=== PATIENT | female | born 1985 | race Caucasian/White ===

== ENCOUNTER 2020-08-26 09:50 | Outpatient (REF) | payer OTHER, SELFPAY ==
[2020-08-27 11:21] LABS: BV Int Neg Control Negative (Negative); BV Int Pos Control Positive (Positive)
[2020-08-27 11:58] LABS: C. trachomatis RNA TMA NOT DETECTED (NOT DETECTED); N. gonorrhoeae RNA TMA NOT DETECTED (NOT DETECTED)
[2020-08-28 20:21] LABS: HPV mRNA E6/E7 rflx Not Detected (Not Detected)
== END 2020-08-26 09:51 | disposition home or self-care (01) ==
LOC: HO.LAB 09:50
PROVIDERS: PCP Internal Medicine; Visit Provider Obstetrics & Gynecology
DX: Z01.419 Encounter for gynecological examination (general) (routine) without abnormal findings (principal); Z11.51 Encounter for screening for human papillomavirus (HPV)
CPT/HCPCS: 36415; 87480; 87491; 87510; 87591; 87624; 87660; 88142

== ENCOUNTER 2021-08-30 09:52 | Outpatient (REF) | payer OTHER, SELFPAY ==
[2021-08-30 14:25] LABS: CT PCR NOT DETECTED (Not Detect.); NG PCR NOT DETECTED (Not Detect.)
== END 2021-08-30 09:53 | disposition home or self-care (01) ==
LOC: HO.LAB 09:52
PROVIDERS: PCP Internal Medicine; Visit Provider Advanced Practice Midwife
DX: Z01.419 Encounter for gynecological examination (general) (routine) without abnormal findings (principal); Z20.2 Contact with and (suspected) exposure to infections with a predominantly sexual mode of transmission
CPT/HCPCS: 87491; 87591

== ENCOUNTER 2021-10-29 12:47 | Outpatient (REF) | payer OTHER, SELFPAY ==
[2021-10-29 12:57] LABS: MANUAL DIFF FLAG NO
[2021-10-29 13:33] LABS: Basophils Percent Auto 0.4 % (0-2); Eosinophils Absolute Auto 0.2 X10*3/uL (0.0-0.4); Eosinophils Percent Auto 2.2 % (0-4); Hematocrit 46.6 % (37.0-47.0); Hemoglobin 15.6 g/dl (12.0-16.0); Imm Gran Abs Auto 0.02 X10*3/uL (0.00-0.03); Imm Gran Pct Auto 0.3 % (0.0-0.4); Lymphocytes Absolute Auto 1.2 X10*3/uL (1.2-4.9); Lymphocytes Percent Auto 18.1 % (20-40); Mean Corpuscular HGB Conc 33.5 g/dl (31.0-35.0); Mean Corpuscular Hemoglobin 29.9 pg (27.0-33.0); Mean Corpuscular Volume 89.4 fL (80.0-98.0); Monocytes Absolute Auto 0.5 X10*3/uL (0.1-1.2); Monocytes Percent Auto 7.9 % (2-11); Neutrophils Absolute Auto 4.8 x10*3/uL (2.0-8.3); Neutrophils Percent Auto 71.1 % (45-73); Platelet Count 270 X10*3/uL (160-400); Red Blood Count 5.21 X10*6/uL (4.20-5.50); Red Cell Distribution Width 12.4 % (11.0-16.0); White Blood Count 6.7 X10*3/uL (4.8-10.8)
[2021-10-29 14:03] LABS: Alanine Aminotransferase 7 U/L (0-31); Albumin Level 4.3 g/dL (3.5-5.0); Alkaline Phosphatase 57 U/L (39-117); Anion Gap 11 (12-20); Aspartate Amino Transferase 14 U/L (5-31); Bilirubin Total 0.8 mg/dL (0.0-1.0); Blood Urea Nitrogen 11 mg/dL (9-16); Calcium 9.7 mg/dL (8.4-10.2); Carbon Dioxide 24 mmol/L (22-29); Chloride 106 mmol/L (96-108); Estimated Glomerular Filt Rate > 60; Glucose Random 93 mg/dL (60-115); Potassium 4.4 mmol/L (3.3-5.1); Sodium 137 mmol/L (135-145); Total Protein 7.5 g/dL (6.5-8.0)
[2021-10-29 14:19] LABS: Erythrocyte Sedimentation Rate 3 MM/HR (0-20)
== END 2021-10-29 12:48 | disposition home or self-care (01) ==
LOC: HO.LAB 12:47
PROVIDERS: PCP Internal Medicine; Visit Provider Internal Medicine
DX: R51.9 Headache, unspecified (principal)
CPT/HCPCS: 36415; 80053; 85025; 85652

== ENCOUNTER 2021-12-17 07:51 | Outpatient (REF) | payer OTHER, SELFPAY ==
[2021-12-17 08:55] LABS: C Reactive Protein 0.15 mg/dL (< or = 0.50); Cholesterol 148 mg/dL; HDL Cholesterol 38 mg/dL; LDL Cholesterol Calculated 99 mg/dl; Magnesium 2.1 mg/dL (1.6-2.6); Triglycerides 58 mg/dL
[2021-12-17 09:05] LABS: Rheumatoid Factor < 15.0 IU/mL (<15.0); TSH reflex Free T4 1.28 uIU/mL (0.32-4.0); Vitamin D 25-OH Total 12.3 ng/mL (>30)
[2021-12-17 09:12] LABS: Appearance Urine HAZY; Color Urine YELLOW; Glucose Urine UA NEG (NEG); Leukocyte Esterase Urine NEG (NEG); Nitrite Urine NEG (NEG); Specific Gravity - Urine >= 1.030 (1.005-1.025); Urine Blood NEG (NEG); Urine Ketones NEG (NEG); Urine Protein NEG (NEG-TRACE)
[2021-12-21 15:16] LABS: Anti Nuclear Antibody Screen NEGATIVE (NEGATIVE)
== END 2021-12-17 07:52 | disposition home or self-care (01) ==
LOC: HO.LAB 07:51
PROVIDERS: PCP Internal Medicine; Visit Provider Internal Medicine
DX: Z00.00 Encounter for general adult medical examination without abnormal findings (principal); E55.9 Vitamin D deficiency, unspecified; R25.2 Cramp and spasm; I73.9 Peripheral vascular disease, unspecified
CPT/HCPCS: 36415; 80061; 81003; 82306; 83735; 84443; 86038; 86039; 86140; 86431

== ENCOUNTER 2022-04-15 10:35 | Outpatient (REF) | payer OTHER, SELFPAY ==
[2022-04-15 15:23] LABS: CT PCR NOT DETECTED (Not Detect.)
[2022-04-15 15:24] LABS: NG PCR NOT DETECTED (Not Detect.)
[2022-04-16 15:16] LABS: BV Int Neg Control Negative (Negative); BV Int Pos Control Positive (Positive)
== END 2022-04-15 10:36 | disposition home or self-care (01) ==
LOC: HO.LNP 10:35
PROVIDERS: Visit Provider Advanced Practice Midwife
DX: Z11.3 Encounter for screening for infections with a predominantly sexual mode of transmission (principal); L29.2 Pruritus vulvae; R82.90 Unspecified abnormal findings in urine; Z20.2 Contact with and (suspected) exposure to infections with a predominantly sexual mode of transmission
CPT/HCPCS: 87480; 87491; 87510; 87591; 87660; 99212

== ENCOUNTER 2022-04-27 09:42 | Outpatient (REF) | payer OTHER, SELFPAY ==
[2022-04-27 16:05] LABS: CT PCR NOT DETECTED (Not Detect.); NG PCR NOT DETECTED (Not Detect.)
[2022-04-28 13:25] LABS: BV Int Neg Control Negative (Negative); BV Int Pos Control Positive (Positive)
== END 2022-04-27 09:43 | disposition home or self-care (01) ==
LOC: HO.LNP 09:42
PROVIDERS: Visit Provider Advanced Practice Midwife
DX: Z11.3 Encounter for screening for infections with a predominantly sexual mode of transmission (principal); L29.2 Pruritus vulvae; N89.8 Other specified noninflammatory disorders of vagina
CPT/HCPCS: 87480; 87491; 87510; 87591; 87660; 99212

== ENCOUNTER 2022-06-03 02:17 | Emergency (ER) | payer OTHER, SELFPAY ==
--- NOTE | 2022-06-03 | ECG_ITS ---
Test Reason : HBP Blood Pressure : / mmHG Vent. Rate : 085 BPM Atrial Rate : 085 BPM P-R Int : 148 ms QRS Dur : 078 ms QT Int : 346 ms P-R-T Axes : 068 033 042 degrees QTc Int : 411 ms Normal sinus rhythm Normal ECG No previous ECGs available Referred By: Generic ED Physician Electronically Signed By:JILLIAN MORELAND MD
[2022-06-03 02:32] VITALS: BP 207/99; PULSE 100; RESP 16; TEMP 36.7; O2SAT 100; BMI 38.1
[2022-06-03 02:47] LABS: MANUAL DIFF FLAG NO
[2022-06-03 02:48] LABS: Basophils Percent Auto 0.4 % (0-2); Eosinophils Absolute Auto 0.4 X10*3/uL (0.0-0.4); Eosinophils Percent Auto 5.6 % (0-4); Hematocrit 46.4 % (37.0-47.0); Hemoglobin 15.7 g/dl (12.0-16.0); Lymphocytes Absolute Auto 1.8 X10*3/uL (1.2-4.9); Lymphocytes Percent Auto 26.8 % (20-40); Mean Corpuscular HGB Conc 33.8 g/dl (31.0-35.0); Mean Corpuscular Hemoglobin 29.7 pg (27.0-33.0); Mean Corpuscular Volume 87.7 fL (80.0-98.0); Mean Platelet Volume 9.9 fL (9.4-12.3); Monocytes Absolute Auto 0.7 X10*3/uL (0.1-1.2); Monocytes Percent Auto 9.8 % (2-11); Neutrophils Absolute Auto 3.9 x10*3/uL (2.0-8.3); Neutrophils Percent Auto 57.4 % (45-73); Platelet Count 250 X10*3/uL (160-400); Red Blood Count 5.29 X10*6/uL (4.20-5.50); Red Cell Distribution Width 12.3 % (11.0-16.0); White Blood Count 6.8 X10*3/uL (4.8-10.8)
[2022-06-03 03:05] LABS: Alanine Aminotransferase 7 U/L (0-31); Albumin Level 4.3 g/dL (3.5-5.0); Alkaline Phosphatase 48 U/L (39-117); Anion Gap 11 (12-20); Aspartate Amino Transferase 14 U/L (5-31); Bilirubin Total 0.4 mg/dL (0.0-1.0); Blood Urea Nitrogen 14 mg/dL (9-16); Calcium 9.7 mg/dL (8.4-10.2); Carbon Dioxide 23 mmol/L (22-29); Chloride 107 mmol/L (96-108); Creatinine Clr Calc Pharmacy 47.8; Estimated Glomerular Filt Rate > 60; Glucose Random 90 mg/dL (60-115); Potassium 4.1 mmol/L (3.3-5.1); Sodium 137 mmol/L (135-145); Total Protein 7.4 g/dL (6.5-8.0)
[2022-06-03 03:11] LABS: COVID-19 Test Negative (Negative)
[2022-06-03 03:41] LABS: Troponin-I High Sensitivity < 3.5 ng/L (<3.5-17.0)
[2022-06-03 05:26] VITALS: BP 156/74; PULSE 74; RESP 16; TEMP 37; O2SAT 100
--- NOTE | 2022-06-03 06:39 | ED_ITS ---
HPI - General Adult General Chief complaint: General Medical Stated complaint: High Blood Pressure Time Seen by Provider: 06/03/22 06:34 Source: patient Mode of arrival: ambulatory Limitations: no limitations History of Present Illness HPI narrative: 36-year-old female with a past medical history of achondroplasia and headaches presents to the emergency department this morning complaining of high blood pressure. Patient states she went to her dentist several days ago, who took her blood pressure and refused to do a dental cleaning, suggesting she follow-up with her primary care doctor. She states that she did call her primary care doctor who told her that they could recheck it later this week or next. She took her blood pressure at home last night and was elevated so came to the emergency department. Patient does not complain of any other symptoms except for some neck and shoulder tightness at times. She does not have any history of hypertension. Onset (ago): day(s) Radiation: non-radiation Severity: mild Quality: dull Pain Consistency: intermittent Relieving factors: none Exacerbating factors: none Related Data Previous Rx's Medication Instructions Recorded albuterol sulfate 90 mcg/actuation 2 puff inhalation Q6H PRN 07/14/21 aerosol inhaler shortness of breath or wheezing 30 days #8.5 grams wcuhehcppr-lmlcqpwsmilrj-hfiublqy 1 cap PO TID PRN headaches 30 days 07/14/21 50 mg-300 mg-40 mg capsule #90 caps (Fioricet) fluconazole 150 mg tablet 150 mg PO Q3D 2 doses #2 tabs 04/27/22 miconazole nitrate 2 % vaginal 1 appful vaginal BEDTIME 7 days 04/27/22 cream (Miconazole-7) #45 grams metronidazole 0.75 % (37.5 mg/5 1 appful vaginal BEDTIME 5 days 04/29/22 gram) vaginal gel #70 grams loratadine 10 mg tablet 10 mg PO DAILY PRN allergy 05/10/22 symptoms #90 tabs montelukast 10 mg tablet 10 mg PO DAILY #90 tabs 05/10/22 blood pressure monitor #1 ea 05/31/22 fluticasone 100 mcg-salmeterol 50 1 ea PO BID 30 days #60 ea 06/02/22 mcg/dose blistr powdr for inhalation (Wixela Inhub) Allergies Allergy/AdvReac Type Severity Reaction Status Date / Time peanut [PEANUT] Allergy Unknown UNKNOWN Verified 04/27/22 09:17 pineapple [PINEAPPLE] Allergy Unknown ITCHING Verified 04/27/22 09:17 shrimp [SHRIMP] Allergy Unknown ITCHING Verified 04/27/22 09:17 tree nut [TREE NUT] Allergy Unknown UNKNOWN Verified 04/27/22 09:17 Review of Systems Review of Systems: Yes all other systems are reviewed and are negative Constitutional: Constitutional: Denies chills, Denies fever(s), Reports headache(s) and Denies weakness Eyes: Eyes: Denies blurry vision, Denies change in vision and Denies diplopia ENT: Reports system reviewed and no additional complaints, except as docu mented and Reports headache(s) Cardiovascular: Cardiovascular: Denies chest pain, Denies rapid heart rate, Denies lightheadedness and Denies dyspnea Respiratory: Respiratory: Denies cough, Denies dyspnea and Denies wheezing Gastrointestinal: Gastrointestinal: Reports no additional gastrointestinal complaints Genitourinary: Genitourinary: Reports no additional female genitourinary c omplaints Musculoskeletal: Musculoskeletal: Reports no additional musculoskeletal complaints and Denies numbness Integumentary/Breasts: Skin/Breast: Reports system reviewed and no additional complaints, except as docu Neurologic: Denies Abnormal speech present, Denies confusion, Reports headache(s), Denies focal weakness, Denies numbness and Denies weakness Psychiatric: Psychiatric: Denies confusion Endocrine: Endocrine: Reports no additional endocrine complaints Allergic/Immunologic: Allergic/Immunologic: Denies wheezing PMFSH Past Medical History Attestation statement: The following information was validated with the patient. Medical History Achondroplasia Allergic rhinitis Asthma H/O abnormal cervical Papanicolaou smear Obesity (BMI 30-39.9) Surgical History History of appendectomy History of section History of tubal ligation Family History Family History Father Diabetes Hypertension Mother Arthritis Social History Social History Housing: House Alcohol intake: current Alcohol intake frequency: a few times a week Patient Tobacco Use Status: Never used Tobacco Smoked in Last 30 Days: No Second Hand Smoke Exposure: No Use of substances other than those prescribed or required for medical reasons: No Advance Directives: No Advance Directives Information Provided: Yes Patient : No Current occupational status: unemployed Cognitive needs: No Hearing needs: No Vision needs: No Physical Exam ED Vital Signs: Vital Signs - 24 hr 06/03/22 02:32 06/03/22 05:26 Temperature 98.1 F 98.6 F Pulse Rate 100 74 Respiratory Rate 16 16 Blood Pressure 207/99 H 156/74 H Pulse Oximetry 100 100 Oxygen Delivery Method Room Air Room Air BMI result Body Mass Index 38.1 Vital signs noted, blood pressure noted to be elevated initially at 207/99, then repeat at 156/74. Const General: cooperative, comfortable and no acute distress; No confusion Orientation/consciousness: oriented to person, patient oriented x3 and No confusion HENMT Head: Yes normal to inspection, Yes normocephalic and Yes atraumatic Ears: hearing grossly normal bilaterally and external ears normal General nose exam: Normal external nose present Face and sinus: Yes normal facial exam Eyes General: appearance normal, both eyes and all related structures Conjunctivae: conjunctivae normal Sclerae: sclerae normal Corneas: corneas normal Pupils: Equal, round and reactive pupils present EOM: EOMs intact bilaterally Direct Ophthalmoscopy: normal light reflex, no papilledema and fundi normal bilaterally Neck Neck: Yes normal visual inspection and Yes full ROM Chest Chest palpation & inspection: normal inspection of the chest Resp Effort & Inspection: normal respiratory effort Auscultation: clear to auscultation bilaterally, no crackles and no rales Cardio Palpation: normal PMI Rate: regular rate Rhythm: regular rhythm Heart sounds: S1 normal heart sound present, S2 normal heart sound present and no murmurs GI Inspection: Yes normal to inspection Palpation (GI): nontender Back/Spine/Pelvis Cervical Spine: normal cervical lordosis and cervical ROM normal Skin General skin exam: no rashes or lesions noted, no mottling and no pallor Neuro General: oriented to person, patient oriented x3 and No confusion Cranial nerves: Yes CN's II-XII intact bilaterally and Yes Equal, round and reactive pupils present Cognition (Neuro): normal cognition Speech: No Abnormal speech present Medical Decision Making MDM Narrative Medical decision making narrative: 36-year-old female with hypertensive urgency. Patient has elevated high blood pressure without any other additional symptoms or signs concerning for end-organ damage. laboratory studies were reviewed below, and are normal. EKG is normal as documented. The patient will be instructed on hypertensive urgency, and will be advised to follow-up with her primary care doctor for re-evaluation, and additional testing. Lab Data Lab results reviewed: Yes I reviewed the patient's lab results. Lab results narrative: CBC, chemistry troponin all normal Result diagrams: 06/03/22 02:43 06/03/22 02:43 Labs: Lab Results 06/03/22 06/03/22 06/03/22 Range/Units 02:43 02:43 02:43 WBC 6.8 (4.8-10.8) X10*3/uL RBC 5.29 (4.20-5.50) X10*6/uL Hgb 15.7 (12.0-16.0) g/dl Hct 46.4 (37.0-47.0) % MCV 87.7 (80.0-98.0) fL MCH 29.7 (27.0-33.0) pg MCHC 33.8 (31.0-35.0) g/dl RDW 12.3 (11.0-16.0) % Plt Count 250 (160-400) X10*3/uL MPV 9.9 (9.4-12.3) fL Immature Gran % (Auto) 0.0 (0.0-0.4) % Neut % (Auto) 57.4 (45-73) % Lymph % (Auto) 26.8 (20-40) % Rolette % (Auto) 9.8 (2-11) % Eos % (Auto) 5.6 H (0-4) % Baso % (Auto) 0.4 (0-2) % Lymph # (Auto) 1.8 (1.2-4.9) X10*3/uL Rolette # (Auto) 0.7 (0.1-1.2) X10*3/uL Eos # (Auto) 0.4 (0.0-0.4) X10*3/uL Baso # (Auto) 0.0 (0.0-0.2) X10*3/uL Abs Immat Gran (auto) 0.00 (0.00-0.03) X10*3/uL Absolute Neuts (auto) 3.9 (2.0-8.3) x10*3/uL Absolute Nucleated RBC 0.000 (0.0-0.012) X10*3/uL Nucleated RBC % (auto) 0.0 (0.0-0.2) /100WBC Sodium 137 (135-145) mmol/L Potassium 4.1 (3.3-5.1) mmol/L Chloride 107 (96-108) mmol/L Carbon Dioxide 23 (22-29) mmol/L Anion Gap 11 L (12-20) BUN 14 (9-16) mg/dL Creatinine 0.85 (0.5-1.4) mg/dL Estim Creat Clear Calc 47.8 Estimated GFR > 60 Random Glucose 90 (60-115) mg/dL Calcium 9.7 (8.4-10.2) mg/dL Total Bilirubin 0.4 (0.0-1.0) mg/dL AST 14 (5-31) U/L ALT 7 (0-31) U/L Alkaline Phosphatase 48 (39-117) U/L Troponin I High Sens (<3.5-17.0) ng/L Total Protein 7.4 (6.5-8.0) g/dL Albumin 4.3 (3.5-5.0) g/dL COVID-19 ([facility]) Negative (Negative) COVID-19 Clin Com See Note 06/03/22 Range/Units 02:43 WBC (4.8-10.8) X10*3/uL RBC (4.20-5.50) X10*6/uL Hgb (12.0-16.0) g/dl Hct (37.0-47.0) % MCV (80.0-98.0) fL MCH (27.0-33.0) pg MCHC (31.0-35.0) g/dl RDW (11.0-16.0) % Plt Count (160-400) X10*3/uL MPV (9.4-12.3) fL Immature Gran % (Auto) (0.0-0.4) % Neut % (Auto) (45-73) % Lymph % (Auto) (20-40) % Rolette % (Auto) (2-11) % Eos % (Auto) (0-4) % Baso % (Auto) (0-2) % Lymph # (Auto) (1.2-4.9) X10*3/uL Rolette # (Auto) (0.1-1.2) X10*3/uL Eos # (Auto) (0.0-0.4) X10*3/uL Baso # (Auto) (0.0-0.2) X10*3/uL Abs Immat Gran (auto) (0.00-0.03) X10*3/uL Absolute Neuts (auto) (2.0-8.3) x10*3/uL Absolute Nucleated RBC (0.0-0.012) X10*3/uL Nucleated RBC % (auto) (0.0-0.2) /100WBC Sodium (135-145) mmol/L Potassium (3.3-5.1) mmol/L Chloride (96-108) mmol/L Carbon Dioxide (22-29) mmol/L Anion Gap (12-20) BUN (9-16) mg/dL Creatinine (0.5-1.4) mg/dL Estim Creat Clear Calc Estimated GFR Random Glucose (60-115) mg/dL Calcium (8.4-10.2) mg/dL Total Bilirubin (0.0-1.0) mg/dL AST (5-31) U/L ALT (0-31) U/L Alkaline Phosphatase (39-117) U/L Troponin I High Sens < 3.5 (<3.5-17.0) ng/L Total Protein (6.5-8.0) g/dL Albumin (3.5-5.0) g/dL COVID-19 ([facility]) (Negative) COVID-19 Clin Com ECG Data Attestation: I personally reviewed and interpreted this ECG as follows: Interpretation: Normal sinus rhythm at 85, normal axis. Normal intervals. No ST T-wave changes. Overall normal EKG. Discharge Plan Discharge Clinical Impression: Hypertensive urgency, Elevated blood pressure reading without diagnosis of hypertension Patient Disposition: Home, Self-Care Instructions: Hypertensive Crisis (ED) Additional Instructions: call your doctor today to arrange follow-up appointments. Prescriptions: No Action metronidazole 0.75 % (37.5mg/5 gram) gel 1 appful vaginal BEDTIME 5 Days Qty: 70 0RF montelukast 10 mg tablet 10 mg PO DAILY Qty: 90 3RF loratadine 10 mg tablet 10 mg PO DAILY PRN (Reason: allergy symptoms) Qty: 90 3RF (DME) blood pressure monitor Kit See Rx Instructions .Route Qty: 1 0RF Rx Instructions: As directed fluticasone propion-salmeterol [Wixela Inhub] 100-50 mcg/dose blister with device 1 ea PO BID 30 Days Qty: 60 5RF albuterol sulfate 90 mcg/actuation HFA aerosol inhaler 2 puff inhalation Q6H PRN (Reason: shortness of breath or wheezing) 30 Days Qty: 8.5 5RF gpvbfdeoqh-tiqzvrcpxqeya-cbwd [Fioricet] 50-300-40 mg capsule 1 cap PO TID PRN (Reason: headaches) 30 Days Qty: 90 3RF miconazole nitrate [Miconazole-7] 2 % cream 1 appful vaginal BEDTIME 7 Days Qty: 45 1RF fluconazole 150 mg tablet 150 mg PO Q3D 0 Days Qty: 2 0RF Rx Instructions: may repeat second dose 72 hrs after first dose if symptoms persist Referrals: Kareem Newton MD [Primary Care Provider] - 1 day
[2022-06-03 07:23] VITALS: BP 166/101; PULSE 88; RESP 19; O2SAT 98
== END 2022-06-03 07:25 | disposition home or self-care (01) ==
PROVIDERS: Emergency Provider Emergency Medicine; PCP Internal Medicine
DX: I16.0 Hypertensive urgency (principal); R51.9 Headache, unspecified; I10 Essential (primary) hypertension; Z20.822 Contact with and (suspected) exposure to COVID-19; Z79.899 Other long term (current) drug therapy
CPT/HCPCS: 36415; 80053; 84484; 85025; 87635; 93005; 99283; 99284

== ENCOUNTER 2022-06-13 14:33 | Outpatient (REF) | payer OTHER, SELFPAY ==
[2022-06-14 06:03] LABS: CT PCR NOT DETECTED (Not Detect.); NG PCR NOT DETECTED (Not Detect.)
[2022-06-14 12:05] LABS: BV Int Neg Control Negative (Negative); BV Int Pos Control Positive (Positive)
== END 2022-06-13 14:34 | disposition home or self-care (01) ==
LOC: HO.LNP 14:33
PROVIDERS: Visit Provider Advanced Practice Midwife
DX: Z11.3 Encounter for screening for infections with a predominantly sexual mode of transmission (principal); N89.8 Other specified noninflammatory disorders of vagina
CPT/HCPCS: 87480; 87491; 87510; 87591; 87660; 99212

== ENCOUNTER 2022-09-19 08:31 | Outpatient (REF) | payer OTHER, SELFPAY ==
[2022-09-19 14:57] LABS: CT PCR NOT DETECTED (Not Detect.); NG PCR NOT DETECTED (Not Detect.)
== END 2022-09-19 08:32 | disposition home or self-care (01) ==
LOC: HO.LNP 08:31
PROVIDERS: PCP Internal Medicine; Visit Provider Advanced Practice Midwife
DX: Z20.2 Contact with and (suspected) exposure to infections with a predominantly sexual mode of transmission (principal)
CPT/HCPCS: 0353U

== ENCOUNTER 2022-11-09 13:14 | Outpatient (REF) | payer OTHER, SELFPAY ==
[2022-11-09 14:07] LABS: Appearance Urine Clear; Color Urine Yellow; Glucose Urine UA Negative (Negative); Leukocyte Esterase Urine Negative (Negative); Nitrite Urine Negative (Negative); Urine Blood Negative (Negative); Urine Ketones Negative (Negative); Urine Protein Negative (Neg-Trace)
[2022-11-09 15:26] LABS: Alanine Aminotransferase 10 U/L (0-31); Albumin Level 4.3 g/dL (3.5-5.0); Alkaline Phosphatase 56 U/L (39-117); Anion Gap 11 (12-20); Aspartate Amino Transferase 15 U/L (5-31); Bilirubin Total 0.6 mg/dL (0.0-1.0); Blood Urea Nitrogen 12 mg/dL (9-16); Calcium 9.5 mg/dL (8.4-10.2); Carbon Dioxide 27 mmol/L (22-29); Chloride 106 mmol/L (96-108); Estimated Glomerular Filt Rate > 60; Glucose Random 86 mg/dL (60-115); Magnesium 1.9 mg/dL (1.6-2.6); Potassium 4.5 mmol/L (3.3-5.1); Sodium 139 mmol/L (135-145); Total Protein 7.2 g/dL (6.5-8.0)
[2022-11-09 15:47] LABS: TSH reflex Free T4 1.16 uIU/mL (0.32-4.0); Vitamin B12 537 pg/mL (200-900); Vitamin D 25-OH Total 14.5 ng/mL (>30)
== END 2022-11-09 13:15 | disposition home or self-care (01) ==
LOC: HO.LAB 13:14
PROVIDERS: PCP Internal Medicine; Visit Provider Internal Medicine
DX: R03.0 Elevated blood-pressure reading, without diagnosis of hypertension (principal); E55.9 Vitamin D deficiency, unspecified; E83.42 Hypomagnesemia; E53.8 Deficiency of other specified B group vitamins; R30.0 Dysuria; E66.9 Obesity, unspecified
CPT/HCPCS: 36415; 80053; 81003; 82306; 82607; 82746; 83735; 84443

== ENCOUNTER 2023-05-16 09:36 | Outpatient (AMB) | payer OTHER, SELFPAY ==
[2023-05-16 09:40] VITALS: BP 120/78; PULSE 85; O2SAT 99; BMI 38.1
--- NOTE | 2023-05-16 09:40 | A.OFFPC_ITS ---
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: No Accompanied by: Self / Same As Patient Allergies peanut [PEANUT] Allergy (Unknown, Verified 05/16/23 10:12) UNKNOWN pineapple [PINEAPPLE] Allergy (Unknown, Verified 05/16/23 10:12) ITCHING shrimp [SHRIMP] Allergy (Unknown, Verified 05/16/23 10:12) ITCHING tree nut [TREE NUT] Allergy (Unknown, Verified 05/16/23 10:12) UNKNOWN Medication List - Last Reconciled 05/16/23 by Kareem Newton MD albuterol sulfate 90 mcg/actuation 2 puffs inhalation Q6H PRN 30 days blood pressure monitor As directed ibdtqjizcl-cncdlywzplnrl-fzdu 50-300-40 mg (Fioricet) 1 cap PO TID PRN 30 days cholecalciferol (vitamin D3) 50 mcg PO DAILY 90 days fluticasone propion-salmeterol 100-50 mcg/dose (Wixela Inhub) 1 ea PO BID 30 days hydroxyzine HCl 25 mg PO TID PRN 30 days loratadine 10 mg PO DAILY PRN montelukast 10 mg PO DAILY Tobacco use date assessed: 05/16/23 Dental Screening Dental Screen Date: 05/16/23 Did you have a dental visit in the last 12 months?: Yes Did you have a dental problem in the last 6 months where you did not have access to dental care?: No Was dental information given to patient?: Patient has dentist HPI 6 month f/u HPI Details Patient comes in today for her follow up visit States that her asthma is again back under control and that the prednisone taper that we called in for her last month worked very well Has noticed that her asthma symptoms have been flaring up a lot this fall; states that she was doing well in the summer with hardly any flare ups Relates (+) on and off low back pain and right hip pain for the past 1 month or so Notes that the pain also feels like it is going deep into her belly button (umbilical) area at times Recalls that her right leg is the shorter of her 2 legs and that she had to wear some orthopedic shoes when she was younger to correct the difference States that she has also been experiencing on and off joint pains in her hands/fingers often lately although she has not noticed any swelling in her fingers She denies any fever, headaches or dizziness Denies any chest pains No nausea/vomiting, no abdominal pain No change in bowel habits noted PFSH Medical History Vitamin D deficiency Achondroplasia H/O abnormal cervical Papanicolaou smear Obesity (BMI 30-39.9) Asthma Allergic rhinitis Surgical History History of appendectomy History of section History of tubal ligation Family History Father Diabetes Hypertension Mother Arthritis Social History Housing: House Alcohol intake: current Alcohol intake frequency: a few times a week Patient Tobacco Use Status: Never used Tobacco e-Cigarette/Vaping Use: Never Used Second Hand Smoke Exposure: No Current occupational status: unemployed Cognitive needs: No Hearing needs: No Vision needs: No Female Reproductive History Menstrual Age of Menarche: 12 Questionnaire PHQ-9 Over the last 2 weeks, how often have you been bothered by any of the following problems? 1. Little interest or pleasure in doing things: not at all 2. Feeling down, depressed, or hopeless: not at all 3. Trouble falling or staying asleep, or sleeping too much: not at all 4. Feeling tired or having little energy: not at all 5. Poor appetite or overeating: not at all 6. Feeling bad about yourself - or that you are a failure or have let yourself or your family down: not at all 7. Trouble concentrating on things, such as reading the newspaper or watching television: not at all 8. Moving or speaking so slowly that other people could have noticed. Or the opposite - being so fidgety or restless that you have been moving around a lot more than usual: not at all 9. Thoughts that you would be better off or of hurting yourself in some way: not at all Total score: 0 Depression Screening Interpretation: Negative Depression Screening Done: Yes [id number] - PHQ-9 Billing: Yes Source: Developed by Drs. Luis Miguel Santana, Edda Maurer, Tor Tan and colleagues, with an educational kelsey from [employer]. Thrive Questionnaire Date Thrive assessed: 05/16/23 I am a: Patient What is your living situation today?: I have a steady place to live Within the past 12 months, did the food you bought not last and you didn't have the money to get more?: Never true Within the past 12 months, did you worry whether your food would run out before you got money to buy more?: Never true Do you have trouble paying for medicines?: No Do you have trouble getting transportation to medical appointments?: No Do you have trouble paying your heating and electricity bill?: No Do you have trouble taking care of your child, family member or friend?: No Do you have trouble with day-to-day activities such as bathing, preparing meals, shopping, managing finances, etc.?: No Are you currently unemployed and looking for a job?: No Are you interested in more education?: No Please select the resources that you would like help with: None Currently or been in a relationship where the following occur: no concerns reported AUDIT C Alcohol Use Questionnaire (AUDIT-C) 1. How often do you have a drink containing alcohol?: Monthly or less 2. How many drinks containing alcohol do you have on a typical day when you are drinking?: 1 or 2 3. How often do you have six or more drinks on one occasion?: Never Total Score: 1 Score Reviewed/Action Taken: Yes GROVER-7 AMB Questionnaire GROVER-7 Date GROVER - 7 assessed: 05/16/23 Feeling nervous, anxious, or on edge: 0 = Not at all Not being able to stop or control worryin = Not at all Worrying too much about different things: 0 = Not at all Trouble relaxin = Not at all Being so restless that it is hard to sit still: 0 = Not at all Becoming easily annoyed or irritable: 0 = Not at all Feeling afraid as if something awful might happen: 0 = Not at all Total GROVER-7 score (0-4 normal; 5-9 mild; 10-14 moderate; 15-21 severe): 0 Source: Developed by Drs. Luis Miguel Santana, Edda Maurer, Tor Tan and colleagues, with an educational kelsey from [employer]. Review of Systems Const Denies chills, Denies fatigue, Denies fever(s) and Denies headache(s) ENT Denies dysphagia, Denies dizziness, Denies otalgia, Denies headache(s), Denies neck pain, Denies odynophagia and Denies sore throat Card Denies chest pain, Denies palpitations and Denies dyspnea Resp Denies cough and Denies dyspnea GI Denies abdominal pain, Denies constipation, Denies dysphagia, Denies heartburn, Denies diarrhea, Denies nausea, Denies odynophagia and Denies vomiting Denies difficulty voiding, Denies nocturia and Denies dysuria Musc Reports back pain (on and off over the lower back ), Reports arthralgias (on and off in both hands/fingers lately; over the right hip area) and Denies neck pain Skin/Breast Denies rash Neuro Denies dizziness and Denies headache(s) Endo Denies fatigue and Denies palpitations Physical exam (Primary Care) Vital Signs: Last Vital Signs Pulse 85 05/16/23 09:40 BP 120/78 05/16/23 09:40 Pulse Ox 99 05/16/23 09:40 Oxygen Delivery Method Room Air 05/16/23 09:40 BMI result Body Mass Index 38.1 Tobacco/Smoking Status: Tobacco use Status Tobacco use date assessed 05/16/23 05/16/23 09:44 Patient Tobacco Use Status Never used Tobacco 05/16/23 09:44 e-Cigarette/Vaping Use Never Used 05/16/23 09:44 PHQ-9: PHQ-9 Score PHQ-9: Total score 0 05/16/23 09:44 Depression Screening Interpretation: Negative Thrive Assessment: Date of Thrive Assessment Date Thrive assessed 05/16/23 05/16/23 09:44 Currently or been in a relationship where the following occur: no concerns reported Const General: no acute distress and alert HENMT Ears: TM's normal bilaterally and EAC's normal Throat: Yes posterior oropharynx normal and Yes tonsils normal (no TP congestion) Neck Neck: Yes no lymphadenopathy and Yes supple Resp Auscultation: clear to auscultation bilaterally, no rales and no wheezes Cardio Rate: regular rate Rhythm: regular rhythm Heart sounds: no murmurs GI Palpation (GI): Soft to palpation, nontender and No hepatosplenomegaly present Back/Spine/Pelvis Thoracic/Lumbar Spine: paraspinal muscle tenderness bilaterally in the mid lumbar and in the lower lumbar and lumbar spinal tenderness (mild) Skin General skin exam: no rashes or lesions noted Extrem General: Yes no clubbing, cyanosis or edema Right upper extremity: Extremity exam: right hand Details: normal to inspection Left upper extremity: hand Details: normal to inspection Right lower extremity: hip/thigh Details: normal to inspection and normal ROM Assessment and Plan Assessment & Plan (1) Asthma: Code(s): J45.909 - Unspecified asthma, uncomplicated Qualifiers: Asthma severity: moderate Asthma persistence: persistent Asthma complication type: uncomplicated Qualified Code(s): J45.40 - Moderate persistent asthma, uncomplicated Plan: States that aside from her recent flare up last month, her asthma has been stable / controlled overall although she's had to use her Albuterol inhaler more often this fall Continue Wixela Inhub 100-50 mcg 1 inhalation BID, Montelukast 10 mg QD and Albuterol HFA 1 to 2 inhalations Q 6 hours as needed (2) Allergic rhinitis: Code(s): J30.9 - Allergic rhinitis, unspecified Qualifiers: Allergic rhinitis trigger: unspecified Allergic rhinitis seasonality: unspecified Qualified Code(s): J30.9 - Allergic rhinitis, unspecified Plan: Continue Loratadine 10 mg QD PRN (3) Vitamin D deficiency: Code(s): E55.9 - Vitamin D deficiency, unspecified Plan: Continue Vitamin D3 2000 units QD (4) Recurrent headache: Code(s): R51.9 - Headache, unspecified Plan: Most likely migraine headaches; patient states that her headaches have been controlled lately Her previous tinging sensation in her head/ears may be a migraine variant or could be related to anxiety Reinforced avoidance of migraine triggers Continue Fioircet 1 tablet 3 to 4 times a day as needed If headaches get worse or start occurring more frequently, may need to consider prophylactic Rx or referral to neurology (5) Achondroplasia: Code(s): Q77.4 - Achondroplasia Plan: Has no associated neurologic symptoms No further interventions are indicated (6) Low back pain: Code(s): M54.50 - Low back pain, unspecified Qualifiers: Chronicity: unspecified Back pain laterality: bilateral Sciatica presence: without sciatica Qualified Code(s): M54.50 - Low back pain, unspecified Plan: Likely musculoskeletal in origin Will send patient for lumbar spine x-rays for further evaluation X-rays done back in 2015 revealed only (+) mild scoliosis with no acute abnormality (7) Hip pain: Code(s): M25.559 - Pain in unspecified hip Qualifiers: Laterality: right Qualified Code(s): M25.551 - Pain in right hip Plan: Will send patient for x-rays of the hips for further evaluation (8) Arthralgia: Code(s): M25.50 - Pain in unspecified joint Qualifiers: Joint pain location: other joint Qualified Code(s): M25.59 - Pain in other specified joint Plan: Will send her for some screening labs for further evaluation and to r/o any inflammatory joint disease as potential etiology of her recent recurrent joint pains (9) Obesity (BMI 30-39.9): Code(s): E66.9 - Obesity, unspecified Plan: Reinforced diet/exercise as tolerated/lose weight Plan To return in 6 months for her next annual physical examination Orders: Orders XR hip BI w PEL1V Today M25.551 - Pain in right hip, M25.552 - Pain in left hip Comprehensive Met. Panel Today M25.50 - Pain in unspecified joint, M25.559 - Pain in unspecified hip, M54.50 - Low back pain, unspecified Erythrocyte Sedimentation Rate Today M25.50 - Pain in unspecified joint, M25.559 - Pain in unspecified hip, M54.50 - Low back pain, unspecified Uric Acid Today M25.50 - Pain in unspecified joint, M25.559 - Pain in unspecified hip, M54.50 - Low back pain, unspecified Rheumatoid Factor Today M25.50 - Pain in unspecified joint, M25.559 - Pain in unspecified hip, M54.50 - Low back pain, unspecified TAYE Reflex Titer and Pattern Today M25.50 - Pain in unspecified joint, M25.559 - Pain in unspecified hip, M54.50 - Low back pain, unspecified XR lumbar spine 2-3V Today M54.50 - Low back pain, unspecified Complete Blood Count Auto Diff Today M25.50 - Pain in unspecified joint, M25.559 - Pain in unspecified hip, M54.50 - Low back pain, unspecified C Reactive Protein Today M25.50 - Pain in unspecified joint, M25.559 - Pain in unspecified hip, M54.50 - Low back pain, unspecified Coding Level of Care Code Est Pt Level 4 (85265) Diagnoses Moderate persistent asthma without complication J45.40 Asthma severity: moderate Asthma persistence: persistent Asthma complication type: uncomplicated Allergic rhinitis, unspecified seasonality, unspecified trigger J30.9 Allergic rhinitis trigger: unspecified Allergic rhinitis seasonality: unspecified Vitamin D deficiency E55.9 Recurrent headache R51.9 Achondroplasia Q77.4 Bilateral low back pain without sciatica, unspecified chronicity M54.50 Chronicity: unspecified Back pain laterality: bilateral Sciatica presence: without sciatica Pain of right hip M25.551 Laterality: right Pain in other joint M25.59 Joint pain location: other joint Obesity (BMI 30-39.9) E66.9
== END 2023-05-16 10:24 | disposition home or self-care (01) ==
PROVIDERS: Visit Provider Internal Medicine
DX: J45.40 Moderate persistent asthma, uncomplicated (principal); J30.9 Allergic rhinitis, unspecified; E66.9 Obesity, unspecified; Z68.38 Body mass index [BMI] 38.0-38.9, adult; E55.9 Vitamin D deficiency, unspecified; R51.9 Headache, unspecified; Q77.4 Achondroplasia; M54.50 Low back pain, unspecified; M25.551 Pain in right hip; M25.59 Pain in other specified joint
CPT/HCPCS: 99214

== ENCOUNTER 2023-05-17 09:00 | Outpatient (REF) | payer OTHER, SELFPAY ==
--- NOTE | ~2023-05-17 | XR_ITS ---
EXAMINATION: XR LUMBOSACRAL SPINE CLINICAL INFORMATION: Lower back pain. COMPARISON: None available. TECHNIQUE: AP and lateral views of the lumbar spine and lateral view of the lumbosacral junction. FINDINGS: Vertebral body heights are normal. At L5-S1, there is a 3 mm retrolisthesis. There is a mild to moderate lumbar dextroscoliosis. The remaining lumbar disc spaces are well-maintained. No acute fracture or spondylolisthesis is seen. There is multi-level mild thoracolumbar spondylosis. The posterior elements are intact. The paravertebral soft tissues are unremarkable. XR/XR lumbar spine 2-3V IMPRESSION: 1. There is mild degenerative disc disease at L5-S1. 2. There is multi-level mild thoracolumbar spondylosis. 3. There is a mild to moderate lumbar dextroscoliosis.
--- NOTE | ~2023-05-17 | XR_ITS ---
EXAMINATION: XR BILATERAL HIPS WITH AP PELVIS CLINICAL INFORMATION: Right hip pain. COMPARISON: None available. TECHNIQUE: AP view of the pelvis and frog-leg lateral views of each hip were obtained. FINDINGS: No fracture. Hip joint spaces are maintained. Alignment is anatomic. Sacroiliac joints and pubic symphysis are normal. No abnormal soft tissue calcifications. XR/XR hip BI w PEL1V IMPRESSION: Normal pelvis and hips.
[2023-05-17 09:18] LABS: MANUAL DIFF FLAG NO
[2023-05-17 09:43] LABS: Basophils Percent Auto 0.7 % (0-2); Eosinophils Absolute Auto 0.5 X10*3/uL (0.0-0.4); Eosinophils Percent Auto 8.6 % (0-4); Hematocrit 47.1 % (37.0-47.0); Hemoglobin 15.6 g/dl (12.0-16.0); Imm Gran Abs Auto 0.01 X10*3/uL (0.00-0.03); Imm Gran Pct Auto 0.2 % (0.0-0.4); Lymphocytes Absolute Auto 1.5 X10*3/uL (1.2-4.9); Lymphocytes Percent Auto 26.8 % (20-40); Mean Corpuscular HGB Conc 33.1 g/dl (31.0-35.0); Mean Corpuscular Hemoglobin 30.2 pg (27.0-33.0); Mean Corpuscular Volume 91.1 fL (80.0-98.0); Mean Platelet Volume 10.1 fL (9.4-12.3); Monocytes Absolute Auto 0.5 X10*3/uL (0.1-1.2); Monocytes Percent Auto 9.7 % (2-11); Neutrophils Absolute Auto 2.9 x10*3/uL (2.0-8.3); Platelet Count 261 X10*3/uL (160-400); Red Blood Count 5.17 X10*6/uL (4.20-5.50); Red Cell Distribution Width 12.4 % (11.0-16.0); White Blood Count 5.5 X10*3/uL (4.8-10.8)
[2023-05-17 10:15] LABS: Alanine Aminotransferase 11 U/L (0-31); Albumin Level 4.3 g/dL (3.5-5.0); Alkaline Phosphatase 52 U/L (39-117); Anion Gap 13 (12-20); Aspartate Amino Transferase 15 U/L (5-31); Bilirubin Total 0.5 mg/dL (0.0-1.0); Blood Urea Nitrogen 9 mg/dL (9-16); C Reactive Protein 0.12 mg/dL (< or = 0.50); Calcium 9.5 mg/dL (8.4-10.2); Carbon Dioxide 24 mmol/L (22-29); Chloride 106 mmol/L (96-108); Estimated Glomerular Filt Rate > 60; Glucose Random 62 mg/dL (60-115); Potassium 3.8 mmol/L (3.3-5.1); Sodium 139 mmol/L (135-145); Total Protein 7.4 g/dL (6.5-8.0); Uric Acid 4.6 mg/dL (2.4-5.7)
[2023-05-17 10:19] LABS: Erythrocyte Sedimentation Rate 2 MM/HR (0-20)
[2023-05-17 10:33] LABS: Rheumatoid Factor < 13.0 IU/mL (<15.0)
[2023-05-22 14:43] LABS: Anti Nuclear Antibody Pattern Nuclear, Homogeneous; Anti Nuclear Antibody Screen POSITIVE (NEGATIVE); Anti Nuclear Antibody Titer 1:40 titer
== END 2023-05-17 09:01 | disposition home or self-care (01) ==
LOC: HO.LAB 09:00
PROVIDERS: PCP Internal Medicine; Visit Provider Internal Medicine
DX: M25.551 Pain in right hip (principal); M25.552 Pain in left hip; M54.50 Low back pain, unspecified; M25.50 Pain in unspecified joint
CPT/HCPCS: 36415; 72100; 73521; 80053; 84550; 85025; 85652; 86038; 86039; 86140; 86431

== ENCOUNTER 2023-09-21 08:56 | Outpatient (REF) | payer OTHER, SELFPAY ==
[2023-09-21 15:34] LABS: CT PCR NOT DETECTED (Not Detect.); NG PCR NOT DETECTED (Not Detect.)
[2023-09-22 16:13] LABS: BV Int Neg Control Negative (Negative); BV Int Pos Control Positive (Positive)
== END 2023-09-21 08:57 | disposition home or self-care (01) ==
LOC: HO.LNP 08:56
PROVIDERS: Visit Provider Advanced Practice Midwife
DX: Z01.419 Encounter for gynecological examination (general) (routine) without abnormal findings (principal); Z20.2 Contact with and (suspected) exposure to infections with a predominantly sexual mode of transmission
CPT/HCPCS: 0353U; 87480; 87510; 87660

== ENCOUNTER 2023-09-21 08:56 | Outpatient (AMB) | payer OTHER, SELFPAY ==
--- NOTE | 2023-09-21 09:02 | MHC.OFFVIS ---
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 Doing well with no concerns. She tries to eat healthy and stays active with exercise. Regular monthly menses. Currently is sexually active. She denies vaginal itching and irritation. STI screening offered; she accepts. Declines bloodwork. Denies family history of breast, ovarian or colon cancer. Last pap smear 2020, negative. REPLACED BY [facility] Medical History Vitamin D deficiency Achondroplasia H/O abnormal cervical Papanicolaou smear Obesity (BMI 30-39.9) Asthma Allergic rhinitis Surgical History History of appendectomy History of section History of tubal ligation Family History Father Diabetes Hypertension Mother Arthritis Social History Housing: House Alcohol intake: current Alcohol intake frequency: a few times a week Patient Tobacco Use Status: Never used Tobacco e-Cigarette/Vaping Use: Never Used Second Hand Smoke Exposure: No Current occupational status: unemployed Cognitive needs: No Hearing needs: No Vision needs: No Female Reproductive History Menstrual Age of Menarche: 12 Date of last menstrual period: 09/14/23 control method: permanent sterilization Permanent Sterilization: BTL Total pregnancies: 3 Full term: 1 Premature: 2 Number of Living Children: 3 Ab spontaneous: 1 Multiple births: 1 Date of last pap smear: 08/26/20 (neg pap and hpv) History of abnormal pap smear: Yes (01/03 cin1 04/06 ascus +hpv 11/05 lgsil 12/06 ascus) Review of Systems Const All systems reviewed & are unremarkable except as noted in HPI and below Reports as per HPI Eyes Reports no additional complaints ENT Reports no additional complaints Card Reports no additional complaints Resp Reports no additional complaints GI Reports as per HPI and Reports no additional complaints Reports as per HPI Musc Reports no additional complaints Skin/Breast Reports as per HPI Neuro Reports no additional complaints Psych Reports no additional complaints Endo Reports no additional complaints Ned/Lymph Reports no additional complaints Aller/Immun Reports no additional complaints Physical Exam Vital Signs: Last Vital Signs BP 100/66 09/21/23 09:07 BMI result Body Mass Index 38.1 Const General: cooperative, healthy appearing, no acute distress, well developed and alert Orientation/consciousness: patient oriented x3 HEENT Head: Yes normal to inspection Eyes General: appearance normal, both eyes and all related structures Neck Neck: Yes normal visual inspection Thyroid: Thyroid normal Chest Chest palpation & inspection: normal inspection of the chest and other (no puckering, dimpling, peau de orange, retraction, discharge, masses) Breast/axilla inspection: normal inspection of the breasts Breast/axilla palpation: normal palpation of the breasts Resp Effort & Inspection: normal respiratory effort GI Inspection: Yes normal to inspection Palpation (GI): Soft to palpation Rectal Exam - Female: deferred General: Yes bladder normal to palpation External Female Exam: normal external appearance and normal appearance of the urethra Speculum Exam - Vagina: normal appearance of the vagina, normal palpation and normal vaginal discharge Speculum Exam - Cervix: normal appearance of the cervix and normal palpation Bimanual exam- vagina & uterus: normal bimanual exam, normal palpation, uterine size normal, bladder normal to palpation, normal palpation and non-tender Bimanual Exam- Adnexa, other: no masses Skin General skin exam: no rashes or lesions noted Rashes: no rashes Neuro General: patient oriented x3 Cognition (Neuro): normal cognition Extrem General: Yes normal to inspection Psych Attitude: cooperative Thought process: Normal thought process present Assessment & Plan Assessment & Plan (1) Encounter for well woman exam with routine gynecological exam: Code(s): Z01.419 - Encounter for gynecological examination (general) (routine) without abnormal findings Plan Discussed: Current recommendations for pap smears per ASCCP guidelines. Breast awareness and periodic breast exams. Maintain a healthy lifestyle including a well balanced diet and routine exercise. Patient verbalizes understanding and agrees to the plan of care. She was given opportunity to ask questions and all questions were answered to the best of my ability. RTO in one year for annual logistics assistant examination. This note is constructed using voice recognition software. While every effort has been made to ensure accuracy, chief operating engineer errors may have been included. Coding Level of Care Code Est Pt Prev Care 18-39y(32989) Diagnoses Encounter for well woman exam with routine gynecological exam Z01.419
[2023-09-21 09:07] VITALS: BP 100/66; BMI 38.1
== END 2023-09-21 09:33 | disposition home or self-care (01) ==
PROVIDERS: PCP Internal Medicine; Visit Provider Advanced Practice Midwife
DX: Z01.419 Encounter for gynecological examination (general) (routine) without abnormal findings (principal)
CPT/HCPCS: 99395

== ENCOUNTER 2023-09-21 09:30 | Outpatient (REF) | payer OTHER, SELFPAY | END 2023-09-21 09:31 | disposition home or self-care (01) | LOC: HO.LAB 09:30 | PROVIDERS: Visit Provider Advanced Practice Midwife | DX: Z13.89 Encounter for screening for other disorder (principal) ==

== ENCOUNTER 2023-11-20 09:18 | Outpatient (AMB) | payer OTHER, SELFPAY ==
--- NOTE | 2023-11-20 09:29 | MHC.PC.OV ---
Vital Signs 11/20/23 09:31 Height 4 ft Weight 123 lb 2 oz BMI 37.6 BP 110/62 Blood Pressure Location Lt brachial Position Sitting Pulse 67 Pulse Source Pulse Oximeter Pulse Oximetry (%) 99 Oxygen Delivery Method Room Air Intake Visit Reasons: pe Intake Note: Patient is here today for a physical. Business Resiliency Manager Required: No Stereo Operator: Not Required per policy Accompanied by: Self / Same As Patient Allergies peanut [PEANUT] Allergy (Unknown, Verified 11/20/23 09:53) UNKNOWN pineapple [PINEAPPLE] Allergy (Unknown, Verified 11/20/23 09:53) ITCHING shrimp [SHRIMP] Allergy (Unknown, Verified 11/20/23 09:53) ITCHING tree nut [TREE NUT] Allergy (Unknown, Verified 11/20/23 09:53) UNKNOWN Medication List - Last Reconciled 11/20/23 by Kareem Newton MD albuterol sulfate 90 mcg/actuation 2 puffs inhalation Q6H PRN 30 days blood pressure monitor As directed [id number]-[id number]-gmps 50-300-40 mg (Fioricet) 1 cap PO TID PRN 30 days cholecalciferol (vitamin D3) 50 mcg PO DAILY 90 days fluticasone propion-salmeterol 100-50 mcg/dose (Wixela Inhub) 1 ea PO BID 30 days levocetirizine (Xyzal) 5 mg PO QPM PRN montelukast 10 mg PO DAILY Tobacco use date assessed: 11/20/23 Dental Screening Dental Screen Date: 11/20/23 Did you have a dental visit in the last 12 months?: Yes Did you have a dental problem in the last 6 months where you did not have access to dental care?: No Was dental information given to patient?: Patient has dentist HPI pe HPI Details Patient comes in today for her annual physical examination States that she feels okay except for a couple of issues lately States that she continues to experience increased pain over her lower back often and would like to know how her x-rays done last time came out Also relates that her toes are almost always cold now (especially at night) even when the weather is turning warmer Notes that her toes get so cold at times that they literally turn white in color Reports (+) recurrent leg pain / cramping at times and she is concerned that she may be having problems with circulation in her lower extremities She denies any headaches or dizziness Denies any chest pains, no SOB No nausea/vomiting, no abdominal pain No change in bowel habits noted Denies any acute urinary symptoms She was seen by gynecology for her annual gynecologic exam back on 09/21/2023 and has her next appt with them scheduled in September 2024 [facility] Medical History (Updated 11/20/23 @ 10:26 by Kareem Newton MD) Vitamin D deficiency Achondroplasia H/O abnormal cervical Papanicolaou smear Obesity (BMI 30-39.9) Asthma Allergic rhinitis Surgical History (Updated 11/20/23 @ 10:16 by Kareem Newton MD) History of appendectomy History of section History of tubal ligation Family History Father Diabetes Hypertension Mother Arthritis Social History Housing: House Alcohol intake: current Alcohol intake frequency: holidays/special occasions only Patient Tobacco Use Status: Never used Tobacco e-Cigarette/Vaping Use: Never Used Second Hand Smoke Exposure: No service: No Current occupational status: unemployed Cognitive needs: No Hearing needs: No Vision needs: No Female Reproductive History Menstrual Age of Menarche: 12 Questionnaire PHQ-9 Over the last 2 weeks, how often have you been bothered by any of the following problems? 1. Little interest or pleasure in doing things: not at all 2. Feeling down, depressed, or hopeless: not at all 3. Trouble falling or staying asleep, or sleeping too much: not at all 4. Feeling tired or having little energy: not at all 5. Poor appetite or overeating: not at all 6. Feeling bad about yourself - or that you are a failure or have let yourself or your family down: not at all 7. Trouble concentrating on things, such as reading the newspaper or watching television: not at all 8. Moving or speaking so slowly that other people could have noticed. Or the opposite - being so fidgety or restless that you have been moving around a lot more than usual: not at all 9. Thoughts that you would be better off or of hurting yourself in some way: not at all Total score: 0 Depression Screening Interpretation: Negative Depression Screening Done: Yes 31005 - PHQ-9 Billing: Yes Source: Developed by Drs. Luis Miguel Santana, Edda aMurer, Tor Tan and colleagues, with an educational kelsey from [employer]. Thrive Questionnaire Date Thrive assessed: 11/20/23 I am a: Patient What is your living situation today?: I have a steady place to live Within the past 12 months, did the food you bought not last and you didn't have the money to get more?: Never true Within the past 12 months, did you worry whether your food would run out before you got money to buy more?: Never true Do you have trouble paying for medicines?: No Do you have trouble getting transportation to medical appointments?: No Do you have trouble paying your heating and electricity bill?: No Do you have trouble taking care of your child, family member or friend?: No Do you have trouble with day-to-day activities such as bathing, preparing meals, shopping, managing finances, etc.?: No Are you currently unemployed and looking for a job?: No Are you interested in more education?: No Currently or been in a relationship where the following occur: no concerns reported THRIVE Score: 0 AUDIT C Alcohol Use Questionnaire (AUDIT-C) 1. How often do you have a drink containing alcohol?: Monthly or less 2. How many drinks containing alcohol do you have on a typical day when you are drinking?: 1 or 2 3. How often do you have six or more drinks on one occasion?: Never Total Score: 1 Score Reviewed/Action Taken: Yes GROVER-7 AMB Questionnaire GROVER-7 Date GROVER - 7 assessed: 11/20/23 Feeling nervous, anxious, or on edge: 0 = Not at all Not being able to stop or control worryin = Not at all Worrying too much about different things: 0 = Not at all Trouble relaxin = Not at all Being so restless that it is hard to sit still: 0 = Not at all Becoming easily annoyed or irritable: 0 = Not at all Feeling afraid as if something awful might happen: 0 = Not at all Total GROVER-7 score (0-4 normal; 5-9 mild; 10-14 moderate; 15-21 severe): 0 Source: Developed by Drs. Luis Miguel Santana, Edda Maurer, Tor Tan and colleagues, with an educational kelsey from [employer]. Review of Systems Const Denies chills, Denies fatigue, Denies fever(s), Denies headache(s) and Denies malaise Eyes Denies blurry vision, Denies change in vision, Denies irritation and Denies itchy eyes ENT Denies dysphagia, Denies dizziness, Denies otalgia, Denies headache(s), Denies nasal congestion, Denies neck pain, Denies odynophagia, Denies sinus pain and Denies sore throat Card Denies chest pain, Denies rapid heart rate, Denies irregular heart rhythm, Denies palpitations and Denies dyspnea Resp Denies chest congestion, Denies cough, Denies dyspnea and Denies wheezing GI Denies abdominal pain, Denies bloating, Denies constipation, Denies dysphagia, Denies heartburn, Denies diarrhea, Denies nausea, Denies odynophagia and Denies vomiting Denies hematuria, Denies urinary frequency, Denies dysuria, Denies urinary incontinence and Denies urinary urgency Musc Reports back pain (over the lower back - increasing), Denies arthralgias, Denies joint swelling, Denies muscle weakness and Denies neck pain Skin/Breast Denies breast pain, Denies breast mass, Reports change in pigmentation (toes turn white and feels cold often - worse at night), Denies lesions, Denies rash and Denies unusual bruising Neuro Denies dizziness, Denies headache(s) and Denies paresthesias Psych Denies anxiety and Denies depression Endo Denies fatigue and Denies palpitations Ned/Lymph Denies easy bruising Aller/Immun Denies itchy eyes and Denies wheezing Physical exam (Primary Care) Vital Signs: Last Vital Signs Pulse 67 11/20/23 09:31 BP 110/62 11/20/23 09:31 Pulse Ox 99 11/20/23 09:31 Oxygen Delivery Method Room Air 11/20/23 09:31 BMI result Body Mass Index 37.6 Tobacco/Smoking Status: Tobacco use Status Tobacco use date assessed 11/20/23 11/20/23 09:35 Patient Tobacco Use Status Never used Tobacco 04/29/24 09:35 e-Cigarette/Vaping Use Never Used 11/20/23 09:35 PHQ-9: PHQ-9 Score PHQ-9: Total score 0 11/20/23 09:55 Depression Screening Interpretation: Negative Thrive Assessment: Date of Thrive Assessment Date Thrive assessed 11/20/23 11/20/23 09:35 Currently or been in a relationship where the following occur: no concerns reported Const Other: short stature General: no acute distress, alert and awake Orientation/consciousness: patient oriented x3 HENMT Head: Yes normocephalic and Yes atraumatic Ears: external ears normal, TM's normal bilaterally and EAC's normal General nose exam: No nasal discharge present Face and sinus: Yes normal facial exam and Yes sinuses nontender Teeth and gingiva: dentition normal Throat: Yes posterior oropharynx normal and Yes tonsils normal (no TP congestion) Eyes Eyelids: Yes eyelids normal Conjunctivae: conjunctivae normal Pupils: Equal, round and reactive pupils present EOM: EOMs intact bilaterally Neck Neck: Yes no lymphadenopathy and Yes supple Thyroid: Thyroid normal Resp Auscultation: clear to auscultation bilaterally, no rales and no wheezes Cardio Rate: regular rate Rhythm: regular rhythm Heart sounds: no murmurs GI Palpation (GI): Soft to palpation, nontender and No hepatosplenomegaly present Auscultation: normal bowel sounds General: Yes no CVA tenderness Back/Spine/Pelvis Back: no CVA tenderness Thoracic/Lumbar Spine: lumbar spinal tenderness Skin Lesions: no lesions Rashes: no rashes Neuro General: patient oriented x3, moves all extremities, no focal motor deficits and CN's II-XI intact bilaterally Cranial nerves: Yes Equal, round and reactive pupils present Cognition (Neuro): normal cognition Gait exam (Neuro): Normal gait present Extrem General: Yes no clubbing, cyanosis or edema Assessment and Plan Assessment & Plan (1) Annual physical exam: Code(s): Z00.00 - Encounter for general adult medical examination without abnormal findings Plan: Check labs She is up-to-date with her annual gynecology exam and pap smear She is not yet due for screening mammography - will start at 39 yrs of age (2) Asthma: Code(s): J45.909 - Unspecified asthma, uncomplicated Qualifiers: Asthma severity: moderate Asthma persistence: persistent Asthma complication type: uncomplicated Qualified Code(s): J45.40 - Moderate persistent asthma, uncomplicated Plan: States that her asthma has been stable / controlled overall Continue Wixela Inhub 100-50 mcg 1 inhalation BID, Montelukast 10 mg QD and Albuterol HFA 1 to 2 inhalations Q 6 hours as needed (3) Allergic rhinitis: Code(s): J30.9 - Allergic rhinitis, unspecified Qualifiers: Allergic rhinitis trigger: unspecified Allergic rhinitis seasonality: unspecified Qualified Code(s): J30.9 - Allergic rhinitis, unspecified Plan: Continue Loratadine 10 mg QD PRN and Montelukast 10 mg QD (4) Vitamin D deficiency: Code(s): E55.9 - Vitamin D deficiency, unspecified Plan: Continue Vitamin D3 2000 units QD Will recheck her Vitamin D level for follow up (5) Recurrent headache: Code(s): R51.9 - Headache, unspecified Plan: Are most likely migraine headaches - patient states that her headaches have been controlled lately Her previous tinging sensation in her head/ears may be a migraine variant or could be related to anxiety Reinforced avoidance of migraine triggers Continue Fioricet 1 tablet 3 to 4 times a day as needed If headaches get worse or start occurring more frequently, may need to consider prophylactic Rx or referral to neurology (6) Achondroplasia: Code(s): Q77.4 - Achondroplasia Plan: Has no associated neurologic symptoms No further interventions are indicated (7) Spondylosis of thoracolumbar spine: Code(s): M47.815 - Spondylosis without myelopathy or radiculopathy, thoracolumbar region Plan: X-rays done back in 2014 revealed only (+) mild scoliosis with no acute abnormality Repeat x-rays done in May 2023 revealed mild degenerative disc disease at L5-S1, multi-level mild thoracolumbar spondylosis and mild to moderate lumbar dextroscoliosis; her hip x-rays came back normal Will refer her to physical therapy for further evaluation and management (8) Cold feet: Code(s): R20.9 - Unspecified disturbances of skin sensation Plan: To consider the possibility of Raynaud's syndrome vs PAD Patient tested mild positive for TAYE a few months ago; ESR and rheumatoid factor were negative Will recheck labs and send her for DNA antibody test for further evaluation Will also refer her for arterial duplex studies to help r/o PAD (9) Obesity (BMI 30-39.9): Code(s): E66.9 - Obesity, unspecified Plan: Reinforced diet/exercise as tolerated/lose weight Plan Follow up in 6 months Orders: Orders PT Evaluation and Treatment Today M47.815 - Spondylosis without myelopathy or radiculopathy, thoracolumbar region, M54.50 - Low back pain, unspecified Complete Blood Count Auto Diff Today D64.9 - Anemia, unspecified, Z00.00 - Encounter for general adult medical examination without abnormal findings Rheumatoid Factor Today I73.00 - Raynaud's syndrome without gangrene Erythrocyte Sedimentation Rate Today I73.00 - Raynaud's syndrome without gangrene Anti DNA DS Antibody Today R76.8 - Other specified abnormal immunological findings in serum US arterial duplex LE BI Today I73.9 - Peripheral vascular disease, unspecified, R25.2 - Cramp and spasm Comprehensive [place]. Panel Fast Today E78.00 - Pure hypercholesterolemia, unspecified, Z00.00 - Encounter for general adult medical examination without abnormal findings Lipid Panel Today E78.00 - Pure hypercholesterolemia, unspecified, Z00.00 - Encounter for general adult medical examination without abnormal findings TSH reflex Free T4 Today E78.00 - Pure hypercholesterolemia, unspecified, Z00.00 - Encounter for general adult medical examination without abnormal findings UA CC w/rflx Micro + Cult Today R30.0 - Dysuria, Z00.00 - Encounter for general adult medical examination without abnormal findings Vitamin D 25-OH Total Today E55.9 - Vitamin D deficiency, unspecified, Z00.00 - Encounter for general adult medical examination without abnormal findings TAYE Reflex Titer and Pattern Today I73.00 - Raynaud's syndrome without gangrene C Reactive Protein Today I73.00 - Raynaud's syndrome without gangrene Coding Level of Care Code Est Pt Prev Care 18-39y(43125) Diagnoses Annual physical exam Z00.00 Moderate persistent asthma without complication J45.40 Asthma severity: moderate Asthma persistence: persistent Asthma complication type: uncomplicated Allergic rhinitis, unspecified seasonality, unspecified trigger J30.9 Allergic rhinitis trigger: unspecified Allergic rhinitis seasonality: unspecified Vitamin D deficiency E55.9 Recurrent headache R51.9 Achondroplasia Q77.4 Spondylosis of thoracolumbar spine M47.815 Cold feet R20.9 Obesity (BMI 30-39.9) E66.9
[2023-11-20 09:31] VITALS: BP 110/62; PULSE 67; O2SAT 99; BMI 37.6
== END 2023-11-20 10:09 | disposition home or self-care (01) ==
PROVIDERS: PCP Internal Medicine; Visit Provider Internal Medicine
DX: Z00.00 Encounter for general adult medical examination without abnormal findings (principal); J45.40 Moderate persistent asthma, uncomplicated; E66.9 Obesity, unspecified; Z68.37 Body mass index [BMI] 37.0-37.9, adult; E55.9 Vitamin D deficiency, unspecified; J30.9 Allergic rhinitis, unspecified; R51.9 Headache, unspecified; Q77.4 Achondroplasia; M47.815 Spondylosis without myelopathy or radiculopathy, thoracolumbar region; R20.9 Unspecified disturbances of skin sensation
CPT/HCPCS: 99395

== ENCOUNTER 2023-11-29 08:47 | Outpatient (REF) | payer OTHER, SELFPAY ==
--- NOTE | ~2023-11-29 | US_ITS ---
EXAMINATION: US arterial duplex LE BI CLINICAL INFORMATION: Cramp and spasm TECHNIQUE: Real-time ultrasound and Doppler techniques (integrating B-mode 2-D vascular images, Doppler spectral analysis and color flow Doppler imaging) were utilized to interrogate the lower extremities. COMPARISON: None FINDINGS: RIGHT LEG: Common femoral artery: 120 cm/s, Triphasic Profunda femoris artery: 94 cm/s, Triphasic Superficial femoral artery (proximal): 116 cm/s, Triphasic Superficial femoral artery (mid): 93 cm/s, Triphasic Superficial femoral artery (distal): 87 cm/s, Triphasic Popliteal artery: 71 cm/s, Triphasic Posterior tibial artery: 82 cm/s, Triphasic Peroneal artery: 55 cm/sec, triphasic Dorsalis pedis artery: 21 cm/sec, triphasic Anterior tibial artery: 29 cm/sec, triphasic LEFT LEG: Common femoral artery: 127 cm/s, Triphasic Profunda femoris artery: 79 cm/s, Triphasic Superficial femoral artery (proximal): 118 cm/s, Triphasic Superficial femoral artery (mid): 103 cm/s, Triphasic Superficial femoral artery (distal): 66 cm/s, Triphasic Popliteal artery: 38 cm/s, Triphasic Posterior tibial artery: 70 cm/s, Triphasic Peroneal artery: 48 cm/sec, triphasic Dorsalis pedis artery: 38 cm/sec, triphasic Anterior tibial artery: 35 cm/sec, triphasic US/US arterial duplex LE BI IMPRESSION: There is no evidence of any hemodynamically significant lower extremity arterial disease by waveform or duplex Doppler criteria at rest.
== END 2023-11-29 08:48 | disposition home or self-care (01) ==
LOC: HO.US 08:47
PROVIDERS: PCP Internal Medicine; Visit Provider Internal Medicine
DX: R25.2 Cramp and spasm (principal); I73.9 Peripheral vascular disease, unspecified
CPT/HCPCS: 93925

== ENCOUNTER 2024-01-15 11:00 | Outpatient (RCR) | payer OTHER, SELFPAY ==
--- NOTE | 2023-12-20 09:51 | MHC.PT.EP ---
[facility] [place] Office [place] Office [place] Office [address] [phone] F: [phone] F: [phone] F: [phone] F: [phone] Physical Therapy Plan of Care Date of Evaluation: 12/15/23 Date of Surgery: Diagnosis: LOW BACK PAIN (KP) Assessment: ESTIVEN IS A PLEASANT 38 YO FEMALE WHO PRESENTS WITH HISTORY OF CHRONIC LOW BACK PAIN. SHE REPORTS LONG HISTORY OF BACK PAIN DUE TO SCOLIOSIS BUT ABOUT A YEAR AGO A NEW TYPE OF SHARPER PAIN BEGAN. SHE FEELS THIS IN CENTRAL LOW BACK AND SACRUM AND SLIGHTLY INTO PV MS. DENIES SIGNIFICANT RADIATION, ALTERED SENSATION, PARESTHESIA. PAIN WORSENS WITH PROLONGED SITTING, STANDING AND WALKING. SHE CAN PERFORM ALL ADLs AND SELF CARE TASK BUT REQUIRES ADDITIONAL TIME TO COMPLETE. SHE LIVES IN 2ND FLOOR OF HOME WITH TWIN 6 YEAR OLDS. UPON EXAM IMPAIRMENTS INCLUDE DECREASED LUMBAR AND LE ROM AND STRENGTH, DECREASED SOFT TISSUE MOBILITY, ALTERED POSTURE AND POSITIONING, ALTERED GAIT AND INCREASED PAIN. FUNCTIONAL LIMITATIONS INCLUDE DECREASED TOLERANCE TO LONG PERIODS OF WALKING AND STATIC POSITIONING, DECREASED TOLERANCE TO HOMEMAKING AND CHILDCARE TASKS, DECREASED PARTICIPATION IN FITNESS AND RECREATIONAL ACTIVITIES. Frequency and Duration: The patient will be seen 2 X WEEK FOR 6 WEEKS Short Term Goals: INITIATE HEP AND PROMOTE SELF MANAGEMENT OF SYMPTOMS [facility]ci Goals: TO DECREASE PAIN LEVELS TO LESS THAN 2/10 IN ORDER TO PARTICIPATE IN COMMUNITY ACTIVITIES TO PERFORM UP TO 50# FLOOR TO WAIST LIFTING FOR PROVIDING CARE TO HER TWIN DAUGHTERS TO BE INDEPENDENT WITH HEP AND SELF MANAGEMENT OF SYMPTOMS TO DEMONSTRATE FULL LE STRENGTH IN ORDER TO PERFORM HOMEMAKING TASKS Treatment Plan: Modalities to reduce pain, spasms and effusion. Manual therapy to restore motion and function. Therapeutic exercise to improve strength and flexibility. Neuromuscular re-education for posture and balance. Therapeutic activities to return to functional activities of daily living. Electronically signed by: MERCEDES LIVINGSTON PT DPT Please sign and return to therapist. Thank you for your referral.
== END 2024-01-19 09:40 | disposition home or self-care (01) ==
LOC: HO.PT 11:00
PROVIDERS: PCP Internal Medicine; Visit Provider Internal Medicine
DX: M54.50 Low back pain, unspecified (principal); M47.815 Spondylosis without myelopathy or radiculopathy, thoracolumbar region
CPT/HCPCS: 97110; 97140; 97162; 97535

== ENCOUNTER 2024-05-23 09:51 | Outpatient (AMB) | payer OTHER, SELFPAY ==
[2024-05-23 09:58] VITALS: BP 100/66; PULSE 76; O2SAT 98; BMI 38.1
--- NOTE | 2024-05-23 09:58 | MHC.PC.OV ---
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 Accompanied by: Self / Same As Patient Allergies peanut [PEANUT] Allergy (Unknown, Verified 05/23/24 10:49) UNKNOWN pineapple [PINEAPPLE] Allergy (Unknown, Verified 05/23/24 10:49) ITCHING shrimp [SHRIMP] Allergy (Unknown, Verified 05/23/24 10:49) ITCHING tree nut [TREE NUT] Allergy (Unknown, Verified 05/23/24 10:49) UNKNOWN Medication List - Last Reconciled 05/23/24 by Kareem Newton MD albuterol sulfate 90 mcg/actuation 2 puffs inhalation Q6H PRN 30 days blood pressure monitor As directed [id number]-[id number]-rnuc 50-300-40 mg (Fioricet) 1 cap PO TID PRN 30 days cholecalciferol (vitamin D3) 50 mcg PO DAILY 90 days fluticasone propion-salmeterol 100-50 mcg/dose (Wixela Inhub) 1 ea PO BID 30 days levocetirizine (Xyzal) 5 mg PO QPM PRN montelukast 10 mg PO DAILY Tobacco use date assessed: 05/23/24 Dental Screening Dental Screen Date: 05/23/24 Did you have a dental visit in the last 12 months?: Yes Did you have a dental problem in the last 6 months where you did not have access to dental care?: No Was dental information given to patient?: Patient has dentist HPI 6MOF\U HPI Details Patient comes in today for her follow up visit States that she feels okay except for what she describes as Raynaud's syndrome, which she states has been going on for a while now and she feels that this has been getting worse lately She relates experiencing cold fingers and cold toes often and that lately, her hands and feet can feel ice cold even when the weather is mild Relates that her fingers and toes sometimes hurt from feeling too cold but she has not noticed any significant color change in her extremities so far She denies any headaches or dizziness Denies any chest pains, no SOB No nausea/vomiting, no abdominal pain No change in bowel habits noted She was not able to get her follow up labs done yet - states that she will try to get them done [facility] Medical History (Updated 05/26/24 @ 13:24 by Kareem Newton MD) Vitamin D deficiency Achondroplasia H/O abnormal cervical Papanicolaou smear Obesity (BMI 30-39.9) Asthma Allergic rhinitis Surgical History History of appendectomy History of section History of tubal ligation Family History Father Diabetes Hypertension Mother Arthritis Social History Housing: House Alcohol intake: current Alcohol intake frequency: holidays/special occasions only Patient Tobacco Use Status: Never used Tobacco e-Cigarette/Vaping Use: Never Used Second Hand Smoke Exposure: No service: No Current occupational status: unemployed Cognitive needs: No Hearing needs: No Vision needs: No Female Reproductive History Menstrual Age of Menarche: 12 Questionnaire PHQ-9 Over the last 2 weeks, how often have you been bothered by any of the following problems? 1. Little interest or pleasure in doing things: not at all 2. Feeling down, depressed, or hopeless: not at all 3. Trouble falling or staying asleep, or sleeping too much: not at all 4. Feeling tired or having little energy: not at all 5. Poor appetite or overeating: not at all 6. Feeling bad about yourself - or that you are a failure or have let yourself or your family down: not at all 7. Trouble concentrating on things, such as reading the newspaper or watching television: not at all 8. Moving or speaking so slowly that other people could have noticed. Or the opposite - being so fidgety or restless that you have been moving around a lot more than usual: not at all 9. Thoughts that you would be better off or of hurting yourself in some way: not at all Total score: 0 Depression Screening Interpretation: Negative Depression Screening Done: Yes 32741 - PHQ-9 Billing: Yes Source: Developed by Mark Sweetet B.W. Erasto, Tor Tan and colleagues, with an educational kelsey from [employer]. Thrive Questionnaire Date Thrive assessed: 05/23/24 I am a: Patient What is your living situation today?: I have a steady place to live Within the past 12 months, did the food you bought not last and you didn't have the money to get more?: Never true Within the past 12 months, did you worry whether your food would run out before you got money to buy more?: Never true Do you have trouble paying for medicines?: No Do you have trouble getting transportation to medical appointments?: No Do you have trouble paying your heating and electricity bill?: No Do you have trouble taking care of your child, family member or friend?: No Do you have trouble with day-to-day activities such as bathing, preparing meals, shopping, managing finances, etc.?: No Are you currently unemployed and looking for a job?: No Are you interested in more education?: No Please select the resources that you would like help with: None Currently or been in a relationship where the following occur: No concerns reported THRIVE Score: 0 AUDIT C Alcohol Use Questionnaire (AUDIT-C) 1. How often do you have a drink containing alcohol?: Monthly or less 2. How many drinks containing alcohol do you have on a typical day when you are drinking?: 1 or 2 3. How often do you have six or more drinks on one occasion?: Never Total Score: 1 Score Reviewed/Action Taken: Yes GROVER-7 AMB Questionnaire GROVER-7 Date GROVER - 7 assessed: 05/23/24 Feeling nervous, anxious, or on edge: 0 = Not at all Not being able to stop or control worryin = Not at all Worrying too much about different things: 0 = Not at all Trouble relaxin = Not at all Being so restless that it is hard to sit still: 0 = Not at all Becoming easily annoyed or irritable: 0 = Not at all Feeling afraid as if something awful might happen: 0 = Not at all Total GROVER-7 score (0-4 normal; 5-9 mild; 10-14 moderate; 15-21 severe): 0 Source: Developed by Drs. Luis Miguel Santana, Edda Maurer, Tor Tan and colleagues, with an educational kelsey from [employer]. Review of Systems Const Denies chills, Denies fatigue, Denies fever(s) and Denies headache(s) ENT Denies dysphagia, Denies dizziness, Denies otalgia, Denies headache(s), Denies neck pain, Denies odynophagia and Denies sore throat Card Denies chest pain, Denies irregular heart rhythm, Denies palpitations and Denies dyspnea Resp Denies chest congestion, Denies cough and Denies dyspnea GI Denies abdominal pain, Denies constipation, Denies dysphagia, Denies heartburn, Denies diarrhea, Denies nausea, Denies odynophagia and Denies vomiting Denies urinary frequency, Denies dysuria and Denies urinary urgency Musc Reports back pain (over the lower back - increasing), Denies arthralgias and Denies neck pain Skin/Breast Denies rash Neuro Denies dizziness, Denies headache(s) and Denies paresthesias Psych Denies anxiety and Denies depression Endo Details: hands/fingers and feet/toes feel cold and freezing often, and sometimes painful, irregardless of the prevailing weather conditions Denies fatigue and Denies palpitations Ned/Lymph Denies easy bruising Physical exam (Primary Care) Vital Signs: Last Vital Signs Pulse 76 05/23/24 09:58 BP 100/66 05/23/24 09:58 Pulse Ox 98 05/23/24 09:58 Oxygen Delivery Method Room Air 05/23/24 09:58 BMI result Body Mass Index 38.1 Tobacco/Smoking Status: Tobacco use Status Tobacco use date assessed 05/23/24 05/23/24 10:05 Patient Tobacco Use Status Never used Tobacco 05/23/24 10:05 e-Cigarette/Vaping Use Never Used 05/23/24 10:05 PHQ-9: PHQ-9 Score PHQ-9: Total score 0 05/24/24 06:25 Depression Screening Interpretation: Negative Thrive Assessment: Date of Thrive Assessment Date Thrive assessed 05/23/24 05/23/24 10:05 Currently or been in a relationship where the following occur: No concerns reported Const Other: short stature General: no acute distress and alert HENMT Ears: TM's normal bilaterally and EAC's normal Throat: Yes posterior oropharynx normal and Yes tonsils normal (no TP congestion) Neck Neck: Yes no lymphadenopathy and Yes supple Thyroid: Thyroid normal Resp Auscultation: clear to auscultation bilaterally, no rales and no wheezes Cardio Rate: regular rate Rhythm: regular rhythm Heart sounds: no murmurs GI Palpation (GI): Soft to palpation and nontender Auscultation: normal bowel sounds General: Yes no CVA tenderness Back/Spine/Pelvis Back: no CVA tenderness Thoracic/Lumbar Spine: lumbar spinal tenderness Skin Rashes: no rashes Extrem General: Yes no clubbing, cyanosis or edema Office Procedures Flu Questionnaire Does the patient have a severe egg allergy?: No Immunizations Fluarix Triv 8099-1130 (PF) 45 mcg (15 mcg x 3)/0.5 mL IM syringe Performing Provider: Kareem Newton MD Performing [facility] Documented (not given) by: LUNA Mejias on 05/23/24 10:22 Reason Not Given: Patient Refused Coding Level of Care Code Est Pt Level 4 (72132) Diagnoses Raynaud's disease without gangrene I73.00 Raynaud?s-associated gangrene presence: without gangrene Positive TAYE (antinuclear antibody) R76.8 Moderate persistent asthma without complication J45.40 Asthma severity: moderate Asthma persistence: persistent Asthma complication type: uncomplicated Allergic rhinitis, unspecified seasonality, unspecified trigger J30.9 Allergic rhinitis trigger: unspecified Allergic rhinitis seasonality: unspecified Vitamin D deficiency E55.9 Recurrent headache R51.9 Achondroplasia Q77.4 Spondylosis of thoracolumbar spine M47.815 Obesity (BMI 30-39.9) E66.9 Assessment & Plan Assessment & Plan (1) Raynaud's syndrome: Code(s): I73.00 - Raynaud's syndrome without gangrene Category: Medical Qualifiers: Raynaud?s-associated gangrene presence: without gangrene Qualified Code(s): I73.00 - Raynaud's syndrome without gangrene Plan: Patient is advised to get her previously ordered labs done [facility] She was sent for arterial studies at her last visit - she had arterial duplex done back in November 2023 and her test came back negative Will refer her to rheumatology for further evaluation and management (2) Positive TAYE (antinuclear antibody): Code(s): R76.8 - Other specified abnormal immunological findings in serum Category: Medical Plan: Patient tested mildly positive for TAYE a few months ago; ESR and rheumatoid factor were negative Will recheck her labs and check her ds-DNA antibody test for further evaluation Will refer her to rheumatology for further evaluation of this as well (3) Asthma: Code(s): J45.909 - Unspecified asthma, uncomplicated Category: Medical Qualifiers: Asthma severity: moderate Asthma persistence: persistent Asthma complication type: uncomplicated Qualified Code(s): J45.40 - Moderate persistent asthma, uncomplicated Plan: Stable / controlled Continue Wixela Inhub 100-50 mcg 1 inhalation BID, Montelukast 10 mg QD and Albuterol HFA 1 to 2 inhalations Q 6 hours as needed (4) Allergic rhinitis: Code(s): J30.9 - Allergic rhinitis, unspecified Category: Medical Qualifiers: Allergic rhinitis trigger: unspecified Allergic rhinitis seasonality: unspecified Qualified Code(s): J30.9 - Allergic rhinitis, unspecified Plan: Continue Loratadine 10 mg QD PRN and Montelukast 10 mg QD (5) Vitamin D deficiency: Code(s): E55.9 - Vitamin D deficiency, unspecified Category: Medical Plan: Continue Vitamin D3 2000 units QD (6) Recurrent headache: Code(s): R51.9 - Headache, unspecified Category: Medical Plan: These are most likely migraine headaches - patient states that her headaches have been well-controlled lately Her previous tinging sensation in her head/ears may be a migraine variant or could be related to anxiety Reinforced avoidance of migraine triggers Continue Fioricet 1 tablet 3 to 4 times a day as needed If her headaches get worse or start occurring more frequently, may need to consider prophylactic Rx or referral to neurology (7) Achondroplasia: Code(s): Q77.4 - Achondroplasia Category: Medical Plan: She has no associated neurologic symptoms and no further interventions are indicated (8) Spondylosis of thoracolumbar spine: Code(s): M47.815 - Spondylosis without myelopathy or radiculopathy, thoracolumbar region Category: Medical Plan: X-rays done back in 2014 revealed only (+) mild scoliosis with no acute abnormality Repeat x-rays done in May 2023 revealed mild degenerative disc disease at L5-S1, multi-level mild thoracolumbar spondylosis and mild to moderate lumbar dextroscoliosis; her hip x-rays came back normal She was previously referred to physical therapy and states that her low back pains have improved with PT (9) Obesity (BMI 30-39.9): Code(s): E66.9 - Obesity, unspecified Category: Medical Plan: Reinforced diet/exercise as tolerated/lose weight Plan Follow up in 6 months Orders: Orders Influenza [id number] Immunization 05/23/24 Z23 - Encounter for immunization Referrals Rheumatology Referral I73.00 - Raynaud's syndrome without gangrene, R76.8 - Other specified abnormal immunological findings in serum
== END 2024-05-23 11:06 | disposition home or self-care (01) ==
LOC: HO.HMCH 09:51
PROVIDERS: PCP Internal Medicine; Visit Provider Internal Medicine
DX: I73.00 Raynaud's syndrome without gangrene (principal); R76.8 Other specified abnormal immunological findings in serum; J45.40 Moderate persistent asthma, uncomplicated; J30.9 Allergic rhinitis, unspecified; E55.9 Vitamin D deficiency, unspecified; R51.9 Headache, unspecified; Q77.4 Achondroplasia; M47.815 Spondylosis without myelopathy or radiculopathy, thoracolumbar region; E66.9 Obesity, unspecified

== ENCOUNTER → 2024-05-23 09:51 | Outpatient (BNVA) | payer OTHER, SELFPAY | PROVIDERS: PCP Internal Medicine; Visit Provider Internal Medicine | DX: I73.00 Raynaud's syndrome without gangrene (principal); R76.8 Other specified abnormal immunological findings in serum; J45.40 Moderate persistent asthma, uncomplicated; J30.9 Allergic rhinitis, unspecified; E55.9 Vitamin D deficiency, unspecified; R51.9 Headache, unspecified; Q77.4 Achondroplasia; M47.815 Spondylosis without myelopathy or radiculopathy, thoracolumbar region; E66.9 Obesity, unspecified | CPT/HCPCS: 90471; 96127; 99212 ==

== ENCOUNTER 2024-08-19 09:08 | Outpatient (REF) | payer OTHER, SELFPAY ==
[2024-08-19 09:41] LABS: MANUAL DIFF FLAG NO
[2024-08-19 10:46] LABS: Basophils Percent Auto 0.7 % (0-2); Eosinophils Absolute Auto 0.3 X10*3/uL (0.0-0.4); Eosinophils Percent Auto 7.7 % (0-4); Hematocrit 45.5 % (37.0-47.0); Hemoglobin 14.9 g/dl (12.0-16.0); Imm Gran Abs Auto 0.01 X10*3/uL (0.00-0.03); Imm Gran Pct Auto 0.2 % (0.0-0.4); Lymphocytes Absolute Auto 1.6 X10*3/uL (1.2-4.9); Lymphocytes Percent Auto 37.8 % (20-40); Mean Corpuscular HGB Conc 32.7 g/dl (31.0-35.0); Mean Corpuscular Hemoglobin 29.7 pg (27.0-33.0); Mean Corpuscular Volume 90.8 fL (80.0-98.0); Mean Platelet Volume 10.4 fL (9.4-12.3); Monocytes Absolute Auto 0.4 X10*3/uL (0.1-1.2); Monocytes Percent Auto 10.3 % (2-11); Neutrophils Absolute Auto 1.8 x10*3/uL (2.0-8.3); Neutrophils Percent Auto 43.3 % (45-73); Platelet Count 194 X10*3/uL (160-400); Red Blood Count 5.01 X10*6/uL (4.20-5.50); Red Cell Distribution Width 13.1 % (11.0-16.0); White Blood Count 4.2 X10*3/uL (4.8-10.8)
[2024-08-19 10:57] LABS: Appearance Urine Clear; Color Urine Yellow; Glucose Urine UA Negative (Negative); Leukocyte Esterase Urine Negative (Negative); Nitrite Urine Negative (Negative); PH 5.5 (5.0-9.0); Specific Gravity - Urine 1.025 (1.005-1.025); UMIC TRIGGER UACC YES; Urine Blood Large (3+) (Negative); Urine Ketones Negative (Negative); Urine Protein Negative (Neg-Trace)
[2024-08-19 11:01] LABS: Bacteria Urine None Seen (None Seen); Hyaline Casts Urine 0-2 /LPF (0-2); RBC Urine >20 /HPF (0-2); Squamous Epithelial Cell Urine 0-2 /HPF (0-2); WBC Urine 0-5 /HPF (0-5)
[2024-08-19 11:25] LABS: Rheumatoid Factor < 13.0 IU/mL (<15.0)
[2024-08-19 11:46] LABS: Alanine Aminotransferase 11 U/L (0-31); Albumin Level 4.1 g/dL (3.5-5.0); Alkaline Phosphatase 58 U/L (39-117); Anion Gap 8 (12-20); Aspartate Amino Transferase 17 U/L (5-31); Bilirubin Total 0.6 mg/dL (0.0-1.0); Blood Urea Nitrogen 16 mg/dL (9-16); C Reactive Protein 0.16 mg/dL (< or = 0.50); Calcium 9.2 mg/dL (8.4-10.2); Carbon Dioxide 25 mmol/L (22-29); Chloride 110 mmol/L (96-108); Cholesterol 164 mg/dL (<200); Estimated Glomerular Filt Rate > 60; Glucose Fasting 81 mg/dL (60-99); HDL Cholesterol 47 mg/dL (>40); LDL Cholesterol Calculated 103 mg/dL (<100); Potassium 3.8 mmol/L (3.3-5.1); Sodium 139 mmol/L (135-145); Total Protein 7.6 g/dL (6.5-8.0); Triglycerides 73 mg/dL (<150)
[2024-08-19 18:41] LABS: Erythrocyte Sedimentation Rate 2 MM/HR (0-20)
[2024-08-20 22:18] LABS: Anti DNA DS Antibody <1 IU/mL
[2024-08-25 09:03] LABS: Anti Nuclear Antibody Pattern Nuclear, Homogeneous; Anti Nuclear Antibody Screen POSITIVE (NEGATIVE); Anti Nuclear Antibody Titer 1:40 titer
== END 2024-08-19 09:09 | disposition home or self-care (01) ==
LOC: HO.LAB 09:08
PROVIDERS: PCP Internal Medicine; Visit Provider Internal Medicine
DX: Z00.00 Encounter for general adult medical examination without abnormal findings (principal); I73.00 Raynaud's syndrome without gangrene; R76.8 Other specified abnormal immunological findings in serum; E78.00 Pure hypercholesterolemia, unspecified; E55.9 Vitamin D deficiency, unspecified; D64.9 Anemia, unspecified
CPT/HCPCS: 36415; 80053; 80061; 81001; 82306; 84443; 85025; 85652; 86038; 86039; 86140; 86225; 86431

== ENCOUNTER → 2024-08-29 09:54 | Outpatient (BNVA) | payer OTHER, SELFPAY | PROVIDERS: PCP Internal Medicine; Visit Provider Student in an Organized Health Care Education/Training Program | DX: I73.00 Raynaud's syndrome without gangrene (principal); R76.8 Other specified abnormal immunological findings in serum | CPT/HCPCS: 99212 ==

== ENCOUNTER 2024-09-05 11:03 | Outpatient (REF) | payer OTHER, SELFPAY ==
[2024-09-05 11:21] LABS: MANUAL DIFF FLAG NO
[2024-09-05 11:38] LABS: Basophils Percent Auto 0.6 % (0-2); Eosinophils Absolute Auto 0.2 X10*3/uL (0.0-0.4); Eosinophils Percent Auto 4.4 % (0-4); Hematocrit 46.4 % (37.0-47.0); Hemoglobin 15.5 g/dl (12.0-16.0); Imm Gran Abs Auto 0.01 X10*3/uL (0.00-0.03); Imm Gran Pct Auto 0.2 % (0.0-0.4); Lymphocytes Absolute Auto 1.3 X10*3/uL (1.2-4.9); Lymphocytes Percent Auto 23.2 % (20-40); Mean Corpuscular HGB Conc 33.4 g/dl (31.0-35.0); Mean Corpuscular Hemoglobin 30.1 pg (27.0-33.0); Mean Corpuscular Volume 90.1 fL (80.0-98.0); Monocytes Absolute Auto 0.4 X10*3/uL (0.1-1.2); Monocytes Percent Auto 7.9 % (2-11); Neutrophils Absolute Auto 3.5 x10*3/uL (2.0-8.3); Neutrophils Percent Auto 63.7 % (45-73); Platelet Count 238 X10*3/uL (160-400); Red Blood Count 5.15 X10*6/uL (4.20-5.50); White Blood Count 5.4 X10*3/uL (4.8-10.8)
[2024-09-05 11:39] LABS: Appearance Urine Turbid; Color Urine Yellow; Glucose Urine UA Negative (Negative); Leukocyte Esterase Urine Trace (Negative); Nitrite Urine Negative (Negative); PH 7.5 (5.0-9.0); Specific Gravity - Urine 1.025 (1.005-1.025); UMIC TRIGGER UA YES; Urine Blood Negative (Negative); Urine Ketones Negative (Negative); Urine Protein Trace mg/dL (Neg-Trace)
[2024-09-05 11:47] LABS: Bacteria Urine None Seen (None Seen); Hyaline Casts Urine 0-2 /LPF (0-2); RBC Urine 0-2 /HPF (0-2); Squamous Epithelial Cell Urine 0-2 /HPF (0-2); WBC Urine 0-5 /HPF (0-5)
[2024-09-05 12:17] LABS: Erythrocyte Sedimentation Rate 2 MM/HR (0-20)
[2024-09-05 12:21] LABS: Creatinine Urine 256.73 mg/dL; Protein/Creatinine Ratio, Ur 0.05 (<0.2); Total Protein Urine Random 12 mg/dL (<12)
[2024-09-05 12:22] LABS: Alanine Aminotransferase 13 U/L (0-31); Albumin Level 4.3 g/dL (3.5-5.0); Alkaline Phosphatase 53 U/L (39-117); Anion Gap 12 (12-20); Aspartate Amino Transferase 19 U/L (5-31); Bilirubin Total 0.7 mg/dL (0.0-1.0); Blood Urea Nitrogen 10 mg/dL (9-16); C Reactive Protein 0.13 mg/dL (< or = 0.50); Calcium 9.5 mg/dL (8.4-10.2); Carbon Dioxide 22 mmol/L (22-29); Chloride 108 mmol/L (96-108); Estimated Glomerular Filt Rate > 60; Glucose Random 82 mg/dL (60-115); Potassium 3.8 mmol/L (3.3-5.1); Sodium 138 mmol/L (135-145); Total Protein 7.7 g/dL (6.5-8.0)
[2024-09-06 12:29] LABS: Complement C3 108 mg/dL (83-193)
[2024-09-06 20:28] LABS: Anti DNA DS Antibody <1 IU/mL; Antibody to SS-A Antigen <1.0 NEG AI (<1.0 NEG); Antibody to SS-B Antigen <1.0 NEG AI (<1.0 NEG); SM/Ribonucleoprotein Ab <1.0 NEG AI (<1.0 NEG); Smith Protein <1.0 NEG AI (<1.0 NEG)
[2024-09-10 06:08] LABS: Beta-2 Glycoprotein IgA <2.0 U/mL (<20.0); Beta-2 Glycoprotein IgG <2.0 U/mL (<20.0); Beta-2 Glycoprotein IgM <2.0 U/mL (<20.0)
[2024-09-10 17:34] LABS: Cardiolipin IgG Ab <2.0 GPL-U/mL; Cardiolipin IgM Ab <2.0 MPL-U/mL
[2024-09-11 21:43] LABS: PTT (LAC) Screen 35 sec (<=40)
== END 2024-09-05 11:04 | disposition home or self-care (01) ==
LOC: HO.LAB 11:03
PROVIDERS: PCP Internal Medicine; Visit Provider Student in an Organized Health Care Education/Training Program
DX: R76.8 Other specified abnormal immunological findings in serum (principal); Z79.01 Long term (current) use of anticoagulants
CPT/HCPCS: 36415; 80053; 81001; 82570; 84156; 85025; 85597; 85598; 85613; 85652; 85730; 86140; 86146; 86147; 86160; 86225; 86235

== ENCOUNTER 2024-09-12 08:00 | Outpatient (AMB) | payer OTHER, SELFPAY ==
--- NOTE | 2024-09-12 08:05 | MHC.OFFVIS ---
Vital Signs 09/12/24 08:09 Height 4 ft Weight 121 lb 7.595 oz BMI 37.1 BP 152/115 H Blood Pressure Location Lt brachial Position Sitting Pulse 100 Pulse Source Pulse Oximeter Pulse Oximetry (%) 98 Oxygen Delivery Method Room Air Intake Visit Reasons: Raynauds Intake Note: Patient presents for Raynauds. Allergies peanut [PEANUT] Allergy (Unknown, Verified 09/12/24 08:09) UNKNOWN pineapple [PINEAPPLE] Allergy (Unknown, Verified 09/12/24 08:09) ITCHING shrimp [SHRIMP] Allergy (Unknown, Verified 09/12/24 08:09) ITCHING tree nut [TREE NUT] Allergy (Unknown, Verified 09/12/24 08:09) UNKNOWN HPI Comments Details: Patient is a 38-year-old female with asthma and allergic rhinitis, elevated blood pressure in office without diagnosis of hypertension, and Raynaud's disease in the setting of a positive TAYE here today for follow up Interval History: Patient last seen 08/29/2024 with me. At that time she was establishing care for the evaluation of Raynaud's. Evaluation at that time did not show any evidence of underlying connective tissue disease. Today, Patient is here today to follow up labs No change in her symptoms Complaining of sometimes intermittent tenderness to palpation of the upper eyelid at the area of the eyelashes. No sicca symptoms Rheumatologic History: Initial history: Patient is a 38-year-old female with migraine headaches and allergies who presents for evaluation of Raynaud's. Patient states that for the past 2-3 years she has been noticing that her toes and her fingers have been changing color upon exposure to cold. They would change purple and then red. No associated ulcers to the tips of the fingers or toes. She does have a history of an unexplained rash affecting her back, buttocks and lower extremities that resolved with topical steroids and a prednisone taper. Denies alopecia, oral/nasal ulcers, sicca symptoms, lymphadenopathy, chest pain/shortness of breath, inflammatory type joint pain, foamy urine, lower extremity edema, muscle weakness, Raynaud's Also denies history of seizure, CVA, psychosis, history of kidney problems, history of cytopenias, history of VTE including PE or DVTs OB History: +1 ectopic Normal and delivery of her son HTN and preeclampsia with her twin girls No hx of placental insufficiency Current Rheumatology Medication(s): [facility] Medical History (Updated 08/29/24 @ 11:52 by Rissa Engel MD) Raynaud's disease without gangrene Vitamin D deficiency Achondroplasia H/O abnormal cervical Papanicolaou smear Obesity (BMI 30-39.9) Asthma Allergic rhinitis Surgical History History of appendectomy History of section History of tubal ligation Family History Father Diabetes Hypertension Mother Arthritis Social History Housing: House Alcohol intake: current Alcohol intake frequency: holidays/special occasions only Patient Tobacco Use Status: Never used Tobacco e-Cigarette/Vaping Use: Never Used Second Hand Smoke Exposure: No service: No Current occupational status: unemployed Cognitive needs: No Hearing needs: No Vision needs: No Female Reproductive History Menstrual Age of Menarche: 12 Review of Systems Const Details: Review of Systems Constitutional: Denies fever, chills, weight loss ENT: Denies vision changes, eye pain or eye redness, dental caries, dry mouth GI: Denies nausea, vomiting, diarrhea, abdominal pain, change in BM Pulm: Denies SOB, HERNANDEZ, hemoptysis, wheezing Cards: Denies chest pain, palpitations Skin: Denies Raynaud's, rash, nail changes, photosensitivity, SEWER 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 Well appearing and in no apparent painful distress HEENT Conjunctiva and sclera clear. ?Pupils equal round and reactive to light. ?No lymphadenopathy. ? CHEST/RESPIRATORY SYSTEM Normal respiratory effort and able to speak in complete sentences. ?Clear to auscultation bilaterally. ?No crackles, rales, rhonchi, wheezes heard. CARDIAC SYSTEM Regular rate and rhythm. ?S1 and S2 heard no murmurs. 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 No deformities noted. ?No synovitis noted to the MCPs, PIPs or DIPs. ?No tenderness to palpation of these joints. Nail fold capillary dermoscopy mostly normal except her left 5th digit with abnormally dilated nail fold capillaries Wrists: ?Full range of motion at the wrists without pain. ?No tenderness to palpation or synovitis noted to the wrists. Elbows: Full range of motion without pain. No tenderness, weakness, swelling, increased warmth or erythema. Shoulders: Full range of motion without pain. No tenderness, weakness, swelling, increased warmth or erythema. Hips: Full range of motion without pain. Hip bursa: No tenderness to palpation Knees: ?Full range of motion. ?No tenderness, swelling, increased warmth or erythema.?No effusion or crepitations Ankles: Full range of motion. ?No tenderness, swelling, increased warmth or erythema.? Feet: ?Negative squeeze test. ?No tenderness to palpation or swelling of the MTPs. Tender points:?No tenderness to palpation of the bilateral trapezius, supraspinatus, greater trochanters, anterior costochondral junctions, bilateral gluteal areas, bilateral suboccipital muscle insertions SKIN Skin intact without rashes. Results Reviewed Results Reviewed: Laboratory Tests 09/05/24 11:18 WBC 5.4 RBC 5.15 Hgb 15.5 Hct 46.4 Plt Count 238 ESR 2 Sodium 138 Potassium 3.8 Chloride 108 Carbon Dioxide 22 Anion Gap 12 BUN 10 Creatinine 0.79 Calcium 9.5 Total Bilirubin 0.7 AST 19 ALT 13 Alkaline Phosphatase 53 C-Reactive Protein 0.13 Total Protein 7.7 Albumin 4.3 Laboratory Tests 09/05/24 11:11 Urine Color Yellow Urine Appearance Turbid Urine pH 7.5 Ur Specific [place] 1.025 Urine Protein Trace Urine Glucose (UA) Negative Urine Blood Negative Urine RBC 0-2 Protein/Creatinin Ratio 0.05 08/19/24 09/05/24 09:39 11:18 Rheumatoid Factor < 13.0 TAYE Screen POSITIVE A TAYE Titer 1:40 H SS-A/Ro Antibody <1.0 NEG SS-B/La Antibody <1.0 NEG Sm (Allen) Antibody <1.0 NEG SM/SLURRY TANK TENDER IgG Antibody <1.0 NEG Double Strand DNA Ab <1 Beta-2-GPI IgG Ab <2.0 Beta-2-GPI IgA Ab <2.0 Beta-2-GPI IgM Ab <2.0 Anti-Cardiolipin IgG Ab <2.0 Anti-Cardiolipin IgM Ab <2.0 Complement C3 108 Complement C4 17 Assessment & Plan Assessment & Plan (1) Raynaud's disease without gangrene: Code(s): I73.00 - Raynaud's syndrome without gangrene Category: Medical Plan: #Raynaud's disease vs Raynaud's syndrome Patient is a 38-year-old female who presents for evaluation of Raynaud's in the setting of a positive TAYE. Raynaud's phenomenon can be divided into primary or secondary. Patients with primary Raynaud's is usually term Raynaud's disease and it is estimated to be present in about 3-5% of patients. More so with a higher prevalence in women because estradiol increases the expression of the kubni5m adrenal receptors on smooth muscle cells leading to increased cutaneous vasoconstriction. Patients with secondary Raynaud's have an underlying vascular disease that disrupt the normal mechanisms for the control of vessel reactivity and this occurs in patients who have an underlying autoimmune connective tissue disorder such as systemic sclerosis, mixed connective tissue disease, SLE, dermatomyositis, Sjogren's, RA and vasculitis to name a few. At this time this patient equivocal exam and history findings to be considered secondary Raynaud's. Her TAYE while positive, it is not clinically positive as an TAYE of 1:80 is required for diagnosis of a connective tissue disease. Her other history with negative inflammatory type joint pain, negative alopecia, no oral or nasal ulcers and no history of abnormal clotting also leads me to believe that this is likely primary Raynaud's disease. Her workup for lung connective tissue disease was unremarkable with negative HAN panel and normal complements. I discussed with the patient that she has primary Raynaud's disease and the treatment for that is mostly conservative with keeping core body temperature warm and lifestyle changes. If she becomes more symptomatic we can explore vasodilatory agents such as calcium channel blockers or PDE5 inhibitors The irritation in her eye at the level of the eyelashes is likely intermittent blepharitis. No need for follow-up If she has any concerning symptoms she is free to make an appointment with the office. Plan - No interventions at this time - RTC prn for worsening or new concerning symptoms Tom'elly GURROLA. Raynaud's phenomenon. J Vasc Nurs. 2001 Mar;19(3):87-92; quiz 93-4. doi: [email or web address]. PMID: [id number]. Plan I spent 20 minutes reviewing the record and labs, taking a history, examining the patient, discussing the treatment plan and documenting in the medical record Coding Level of Care Code Est Pt Level 3 (99803) Diagnoses Raynaud's disease without gangrene I73.00
[2024-09-12 08:09] VITALS: BP 152/115; PULSE 100; O2SAT 98; BMI 37.1
== END 2024-09-12 08:31 | disposition home or self-care (01) ==
LOC: HO.RHE 08:00
PROVIDERS: PCP Internal Medicine; Visit Provider Student in an Organized Health Care Education/Training Program
DX: I73.00 Raynaud's syndrome without gangrene (principal)
CPT/HCPCS: 99213

== ENCOUNTER → 2024-09-12 08:00 | Outpatient (BNVA) | payer OTHER, SELFPAY | PROVIDERS: PCP Internal Medicine; Visit Provider Student in an Organized Health Care Education/Training Program | DX: I73.00 Raynaud's syndrome without gangrene (principal) | CPT/HCPCS: 99212 ==

== ENCOUNTER 2024-10-01 08:58 | Outpatient (REF) | payer OTHER, SELFPAY ==
[2024-10-02 05:41] LABS: CT PCR NOT DETECTED (Not Detect.); NG PCR NOT DETECTED (Not Detect.)
[2024-10-02 09:26] LABS: Bacterial Vaginosis PCR NEGATIVE (Negative); Candida Group PCR NOT DETECTED (Not Detect); Candida glab krusei PCR NOT DETECTED (Not Detect); Trichomonas vaginalis PCR NOT DETECTED (Not Detect)
== END 2024-10-01 08:59 | disposition home or self-care (01) ==
LOC: HO.LAB 08:58
PROVIDERS: PCP Internal Medicine; Visit Provider Advanced Practice Midwife
DX: Z01.419 Encounter for gynecological examination (general) (routine) without abnormal findings (principal); Z20.2 Contact with and (suspected) exposure to infections with a predominantly sexual mode of transmission
CPT/HCPCS: 81515; 87491; 87591; 99459

== ENCOUNTER 2024-10-01 08:58 | Outpatient (AMB) | payer OTHER, SELFPAY ==
--- NOTE | 2024-10-01 09:02 | MHC.OFFVIS ---
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 Doing well with floor inspector concerns: breast tenderness, cramping. No odor or discharge. Regular monthly menses. History of tubal ligation. Currently is sexually active. She denies vaginal itching and irritation. STI screening offered; she accepts. Declines blood work. She tries to eat healthy and stays active with exercise. Denies family history of breast, ovarian or colon cancer. Last pap smear 2020, negative. [facility] Medical History Raynaud's disease without gangrene Vitamin D deficiency Achondroplasia H/O abnormal cervical Papanicolaou smear Obesity (BMI 30-39.9) Asthma Allergic rhinitis Surgical History History of appendectomy History of section History of tubal ligation Family History Father Diabetes Hypertension Mother Arthritis Social History Housing: House Alcohol intake: current Alcohol intake frequency: holidays/special occasions only Patient Tobacco Use Status: Never used Tobacco e-Cigarette/Vaping Use: Never Used Second Hand Smoke Exposure: No service: No Current occupational status: unemployed Cognitive needs: No Hearing needs: No Vision needs: No Female Reproductive History Menstrual Age of Menarche: 12 Duration of menses: <3 days Date of last menstrual period: 09/12/24 control method: permanent sterilization Permanent Sterilization: BTL Total pregnancies: 3 Full term: 1 Premature: 2 Number of Living Children: 3 Ab spontaneous: 1 Multiple births: 1 Date of last pap smear: 08/26/20 (neg pap and hpv) History of abnormal pap smear: Yes (01/03 pankaj 1 04/06 ascus +hpv 11/05 lgsil 12/06 ascus) Review of Systems Const All systems reviewed & are unremarkable except as noted in HPI and below Reports as per HPI Eyes Reports no additional complaints ENT Reports no additional complaints Card Reports no additional complaints Resp Reports no additional complaints GI Reports as per HPI and Reports no additional complaints Reports as per HPI Musc Reports no additional complaints Skin/Breast Reports as per HPI Neuro Reports no additional complaints Psych Reports no additional complaints Endo Reports no additional complaints Ned/Lymph Reports no additional complaints Aller/Immun Reports no additional complaints Physical Exam Const General: cooperative, healthy appearing, no acute distress, well developed and alert Orientation/consciousness: patient oriented x3 HEENT Head: Yes normal to inspection Eyes General: appearance normal, both eyes and all related structures Neck Neck: Yes normal visual inspection Thyroid: Thyroid normal Chest Chest palpation & inspection: normal inspection of the chest and other (no puckering, dimpling, peau de orange, retraction, discharge, masses) Breast/axilla inspection: normal inspection of the breasts Breast/axilla palpation: normal palpation of the breasts Resp Effort & Inspection: normal respiratory effort GI Inspection: Yes normal to inspection and Yes scar Palpation (GI): Soft to palpation Rectal Exam - Female: deferred General: Yes bladder normal to palpation External Female Exam: normal external appearance and normal appearance of the urethra Speculum Exam - Vagina: normal appearance of the vagina, normal palpation and normal vaginal discharge Speculum Exam - Cervix: normal appearance of the cervix and normal palpation Bimanual exam- vagina & uterus: normal bimanual exam, normal palpation, uterine size normal, bladder normal to palpation, normal palpation and non-tender Bimanual Exam- Adnexa, other: no masses Skin General skin exam: no rashes or lesions noted Rashes: no rashes Neuro General: patient oriented x3 Cognition (Neuro): normal cognition Extrem General: Yes normal to inspection Psych Attitude: cooperative Thought process: Normal thought process present Assessment & Plan Assessment & Plan (1) Encounter for well woman exam with routine gynecological exam: Code(s): Z01.419 - Encounter for gynecological examination (general) (routine) without abnormal findings Category: Medical Plan Discussed: Current recommendations for pap smears per ASCCP guidelines. Breast awareness and periodic breast exams. Mammogram ordered for after her 39th. Maintain a healthy lifestyle including a well balanced diet and routine exercise. Patient verbalizes understanding and agrees to the plan of care. She was given opportunity to ask questions and all questions were answered to the best of my ability. RTO in one year for annual floor inspector examination. This note is constructed using voice recognition software. While every effort has been made to ensure accuracy, mechanical adjuster errors may have been included. Orders: Orders MM tomosynthesis screening BI 12/23/24 Z12.31 - Encounter for screening mammogram for malignant neoplasm of breast Bacterial Vaginosis Panel Today Z20.2 - Contact with and (suspected) exposure to infections with a predominantly sexual mode of transmission CT NG by PCR Today Z20.2 - Contact with and (suspected) exposure to infections with a predominantly sexual mode of transmission Coding Level of Care Code Est Pt Prev Care 18-39y(89148) Diagnoses Encounter for well woman exam with routine gynecological exam Z01.419
[2024-10-01 09:04] VITALS: BP 110/70; BMI 37.2
== END 2024-10-01 09:35 | disposition home or self-care (01) ==
LOC: HO.HWS 08:58
PROVIDERS: PCP Internal Medicine; Visit Provider Advanced Practice Midwife
DX: Z01.419 Encounter for gynecological examination (general) (routine) without abnormal findings (principal)
CPT/HCPCS: 99395; 99459

== ENCOUNTER 2024-10-01 09:29 | Outpatient (REF) | payer OTHER, SELFPAY | END 2024-10-01 09:30 | disposition home or self-care (01) | LOC: HO.LNP 09:29 | PROVIDERS: Visit Provider Advanced Practice Midwife | DX: Z13.89 Encounter for screening for other disorder (principal) ==

== ENCOUNTER 2024-11-21 09:49 | Outpatient (AMB) | payer OTHER, SELFPAY ==
--- NOTE | 2024-11-21 09:56 | MHC.PC.OV ---
Vital Signs 11/21/24 09:57 Height 4 ft Weight 124 lb BMI 37.8 BP 118/82 Blood Pressure Location Lt brachial Position Sitting Pulse 80 Pulse Source Pulse Oximeter Pulse Oximetry (%) 99 Oxygen Delivery Method Room Air Intake Visit Reasons: 6mth f/u Intake Note: Patient here for a 6 month follow up Group Activities Aide Required: No Accompanied by: Self / Same As Patient Allergies peanut [PEANUT] Allergy (Unknown, Verified 11/21/24 10:23) UNKNOWN pineapple [PINEAPPLE] Allergy (Unknown, Verified 11/21/24 10:23) ITCHING shrimp [SHRIMP] Allergy (Unknown, Verified 11/21/24 10:23) ITCHING tree nut [TREE NUT] Allergy (Unknown, Verified 11/21/24 10:23) UNKNOWN Medication List - Last Reconciled 11/21/24 by Kareem Newton MD albuterol sulfate 90 mcg/actuation 2 puffs inhalation Q6H PRN 30 days blood pressure monitor As directed chsmgipaur-ucxerkczebfqb-wipk 50-300-40 mg (Fioricet) 1 cap PO TID PRN 30 days cholecalciferol (vitamin D3) 50 mcg PO DAILY 90 days fluticasone propion-salmeterol 100-50 mcg/dose (Wixela Inhub) 1 ea PO BID 30 days levocetirizine (Xyzal) 5 mg PO QPM PRN montelukast 10 mg PO DAILY Tobacco use date assessed: 11/21/24 Dental Screening Dental Screen Date: 11/21/24 Did you have a dental visit in the last 12 months?: Yes Did you have a dental problem in the last 6 months where you did not have access to dental care?: No Was dental information given to patient?: Patient has dentist HPI 6mth f/u HPI Details Patient comes in today for her follow up visit States that she feels okay She denies any headaches or dizziness Denies any chest pains, no SOB No nausea/vomiting, no abdominal pain No change in bowel habits noted She was seen by rheumatology a couple of months ago for evaluation of her Raynaud's syndrome and positive TAYE and was sent for some additional work ups Was advised that she does not have any evidence of inflammatory joint disease or lupus and can just follow up with them on an as-needed basis [facility] Medical History Raynaud's disease without gangrene Vitamin D deficiency Achondroplasia H/O abnormal cervical Papanicolaou smear Obesity (BMI 30-39.9) Asthma Allergic rhinitis Surgical History History of appendectomy History of section History of tubal ligation Family History Father Diabetes Hypertension Mother Arthritis Social History Housing: House Alcohol intake: current Alcohol intake frequency: holidays/special occasions only Patient Tobacco Use Status: Never used Tobacco e-Cigarette/Vaping Use: Never Used Second Hand Smoke Exposure: No service: No Current occupational status: unemployed Cognitive needs: No Hearing needs: No Vision needs: No Female Reproductive History Menstrual Age of Menarche: 12 Questionnaire PHQ-9 Over the last 2 weeks, how often have you been bothered by any of the following problems? 1. Little interest or pleasure in doing things: not at all 2. Feeling down, depressed, or hopeless: not at all 3. Trouble falling or staying asleep, or sleeping too much: not at all 4. Feeling tired or having little energy: not at all 5. Poor appetite or overeating: not at all 6. Feeling bad about yourself - or that you are a failure or have let yourself or your family down: not at all 7. Trouble concentrating on things, such as reading the newspaper or watching television: not at all 8. Moving or speaking so slowly that other people could have noticed. Or the opposite - being so fidgety or restless that you have been moving around a lot more than usual: not at all 9. Thoughts that you would be better off or of hurting yourself in some way: not at all Total score: 0 Depression Screening Interpretation: Negative Depression Screening Done: Yes 46666 - PHQ-9 Billing: Yes Source: Developed by Drs. Luis Miguel Santana, Edda Maurer, Tor Tan and colleagues, with an educational kelsey from [employer] (P). Thrive Questionnaire Date Thrive assessed: 11/21/24 I am a: Patient What is your living situation today?: I have a steady place to live Within the past 12 months, did the food you bought not last and you didn't have the money to get more?: Never true Within the past 12 months, did you worry whether your food would run out before you got money to buy more?: Never true Do you have trouble paying for medicines?: No Do you have trouble getting transportation to medical appointments?: No Do you have trouble paying your heating and electricity bill?: No Do you have trouble taking care of your child, family member or friend?: No Do you have trouble with day-to-day activities such as bathing, preparing meals, shopping, managing finances, etc.?: No Are you currently unemployed and looking for a job?: No Are you interested in more education?: No Please select the resources that you would like help with: None Currently or been in a relationship where the following occur: No concerns reported THRIVE Score: 0 AUDIT C Alcohol Use Questionnaire (AUDIT-C) 1. How often do you have a drink containing alcohol?: Never 2. How many drinks containing alcohol do you have on a typical day when you are drinking?: 1 or 2 3. How often do you have six or more drinks on one occasion?: Never Total Score: 0 Score Reviewed/Action Taken: Yes GROVER-7 AMB Questionnaire GROVER-7 Date GROVER - 7 assessed: 11/21/24 Feeling nervous, anxious, or on edge: 0 = Not at all Not being able to stop or control worryin = Not at all Worrying too much about different things: 0 = Not at all Trouble relaxin = Not at all Being so restless that it is hard to sit still: 0 = Not at all Becoming easily annoyed or irritable: 0 = Not at all Feeling afraid as if something awful might happen: 0 = Not at all Total GROVER-7 score (0-4 normal; 5-9 mild; 10-14 moderate; 15-21 severe): 0 Source: Developed by Drs. Luis Miguel Santana, Edda Maurer, Tor Tan and colleagues, with an educational kelsey from [employer] (P). Review of Systems Const Denies chills, Denies fatigue, Denies fever(s) and Denies headache(s) ENT Denies dysphagia, Denies dizziness, Denies otalgia, Denies headache(s), Denies neck pain, Denies odynophagia and Denies sore throat Card Denies chest pain, Denies irregular heart rhythm, Denies palpitations and Denies dyspnea Resp Denies chest congestion, Denies cough and Denies dyspnea GI Denies abdominal pain, Denies constipation, Denies dysphagia, Denies heartburn, Denies diarrhea, Denies nausea, Denies odynophagia and Denies vomiting Denies difficulty voiding, Denies dysuria and Denies urinary urgency Musc Reports back pain (over the lower back - increasing), Denies arthralgias and Denies neck pain Skin/Breast Denies rash Neuro Denies dizziness, Denies headache(s) and Denies paresthesias Psych Denies anxiety and Denies depression Endo Details: hands/fingers and feet/toes feel cold and freezing often, and sometimes painful, irregardless of the prevailing weather conditions Denies fatigue and Denies palpitations Ned/Lymph Denies easy bruising Physical exam (Primary Care) Vital Signs: Last Vital Signs Pulse 80 11/21/24 09:57 BP 118/82 11/21/24 09:57 Pulse Ox 99 11/21/24 09:57 Oxygen Delivery Method Room Air 11/21/24 09:57 BMI result Body Mass Index 37.8 Tobacco/Smoking Status: Tobacco use Status Tobacco use date assessed 11/21/24 11/21/24 10:02 Patient Tobacco Use Status Never used Tobacco 11/21/24 10:02 e-Cigarette/Vaping Use Never Used 11/21/24 10:02 PHQ-9: PHQ-9 Score PHQ-9: Total score 0 11/21/24 10:33 Depression Screening Interpretation: Negative Thrive Assessment: Date of Thrive Assessment Date Thrive assessed 11/21/24 11/21/24 10:02 Currently or been in a relationship where the following occur: No concerns reported Const Other: short stature General: no acute distress and alert HENMT Ears: TM's normal bilaterally and EAC's normal Throat: Yes posterior oropharynx normal and Yes tonsils normal (no TP congestion) Neck Neck: Yes no lymphadenopathy and Yes supple Thyroid: Thyroid normal Resp Auscultation: clear to auscultation bilaterally, no rales and no wheezes Cardio Rate: regular rate Rhythm: regular rhythm Heart sounds: no murmurs GI Palpation (GI): Soft to palpation and nontender Auscultation: normal bowel sounds General: Yes no CVA tenderness Back/Spine/Pelvis Back: no CVA tenderness Thoracic/Lumbar Spine: lumbar spinal tenderness Skin Rashes: no rashes Extrem General: Yes no clubbing, cyanosis or edema Coding Level of Care Code Est Pt Level 4 (42542) Diagnoses Raynaud's disease without gangrene I73.00 Raynaud?s-associated gangrene presence: without gangrene Positive TAYE (antinuclear antibody) R76.8 Moderate persistent asthma without complication J45.40 Asthma severity: moderate Asthma persistence: persistent Asthma complication type: uncomplicated Allergic rhinitis, unspecified seasonality, unspecified trigger J30.9 Allergic rhinitis trigger: unspecified Allergic rhinitis seasonality: unspecified Vitamin D deficiency E55.9 Recurrent headache R51.9 Achondroplasia Q77.4 Spondylosis of thoracolumbar spine M47.815 Obesity (BMI 30-39.9) E66.9 Additional Codes PHQ-9 - 31775 - PHQ-9 Billing: Yes ([id number]) Assessment & Plan Assessment & Plan (1) Raynaud's syndrome: Code(s): I73.00 - Raynaud's syndrome without gangrene Category: Medical Qualifiers: Raynaud?s-associated gangrene presence: without gangrene Qualified Code(s): I73.00 - Raynaud's syndrome without gangrene Plan: Patient had arterial duplex done back in November 2023 - test came back negative She was referred to and seen by rheumatology a couple of months ago and was reportedly advised that she does not have any evidence of inflammatory joint disease or lupus and can just follow up with rheumatology on an as-needed basis (2) Positive TAYE (antinuclear antibody): Code(s): R76.8 - Other specified abnormal immunological findings in serum Category: Medical Plan: Patient tested mildly positive for TAYE a few months ago; ESR and rheumatoid factor were negative Her ds-DNA antibody test also came back negative She has been advised by rheumatology that she does not have any evidence of inflammatory joint disease or lupus (3) Asthma: Code(s): J45.909 - Unspecified asthma, uncomplicated Category: Medical Qualifiers: Asthma severity: moderate Asthma persistence: persistent Asthma complication type: uncomplicated Qualified Code(s): J45.40 - Moderate persistent asthma, uncomplicated Plan: Controlled Continue Wixela Inhub 100-50 mcg 1 inhalation BID, Montelukast 10 mg QD and Albuterol HFA 1 to 2 inhalations Q 6 hours as needed (4) Allergic rhinitis: Code(s): J30.9 - Allergic rhinitis, unspecified Category: Medical Qualifiers: Allergic rhinitis trigger: unspecified Allergic rhinitis seasonality: unspecified Qualified Code(s): J30.9 - Allergic rhinitis, unspecified Plan: Continue Loratadine 10 mg QD PRN and Montelukast 10 mg QD (5) Vitamin D deficiency: Code(s): E55.9 - Vitamin D deficiency, unspecified Category: Medical Plan: Continue Vitamin D3 2000 units QD (6) Recurrent headache: Code(s): R51.9 - Headache, unspecified Category: Medical Plan: These are most likely migraine headaches - patient states that her headaches have been well-controlled lately Her previous tinging sensation in her head/ears may be a migraine variant or could be related to anxiety Reinforced avoidance of migraine triggers Continue Fioricet 1 tablet 3 to 4 times a day as needed If her headaches get worse or start occurring more frequently, may need to consider prophylactic Rx or referral to neurology (7) Achondroplasia: Code(s): Q77.4 - Achondroplasia Category: Medical Plan: She has no associated neurologic symptoms and no further interventions are indicated (8) Spondylosis of thoracolumbar spine: Code(s): M47.815 - Spondylosis without myelopathy or radiculopathy, thoracolumbar region Category: Medical Plan: X-rays done back in 2014 revealed only (+) mild scoliosis with no acute abnormality Repeat x-rays done in May 2023 revealed mild degenerative disc disease at L5-S1, multi-level mild thoracolumbar spondylosis and mild to moderate lumbar dextroscoliosis; her hip x-rays came back normal She was previously referred to physical therapy and states that her low back pains have improved with PT (9) Obesity (BMI 30-39.9): Code(s): E66.9 - Obesity, unspecified Category: Medical Plan: Reinforced diet/exercise as tolerated/lose weight Plan To return in 6 months for her next annual physical examination Orders: Orders Complete Blood Count Auto Diff 6 Months D64.9 - Anemia, unspecified, Z00.00 - Encounter for general adult medical examination without abnormal findings Lipid Panel 6 Months E78.00 - Pure hypercholesterolemia, unspecified, Z00.00 - Encounter for general adult medical examination without abnormal findings TSH reflex Free T4 6 Months E78.00 - Pure hypercholesterolemia, unspecified, Z00.00 - Encounter for general adult medical examination without abnormal findings UA CC w/rflx Micro + Cult 6 Months R30.0 - Dysuria, Z00.00 - Encounter for general adult medical examination without abnormal findings Comprehensive [place]. Panel Fast 6 Months E78.00 - Pure hypercholesterolemia, unspecified, Z00.00 - Encounter for general adult medical examination without abnormal findings Vitamin D 25-OH Total 6 Months E55.9 - Vitamin D deficiency, unspecified, Z00.00 - Encounter for general adult medical examination without abnormal findings
[2024-11-21 09:57] VITALS: BP 118/82; PULSE 80; O2SAT 99; BMI 37.8
== END 2024-11-21 10:39 | disposition home or self-care (01) ==
LOC: HO.HMCH 09:50
PROVIDERS: PCP Internal Medicine; Visit Provider Internal Medicine
DX: I73.00 Raynaud's syndrome without gangrene (principal); R76.8 Other specified abnormal immunological findings in serum; Z68.37 Body mass index [BMI] 37.0-37.9, adult; E66.9 Obesity, unspecified; J45.40 Moderate persistent asthma, uncomplicated; J30.9 Allergic rhinitis, unspecified; E55.9 Vitamin D deficiency, unspecified; R51.9 Headache, unspecified; Q77.4 Achondroplasia; M47.815 Spondylosis without myelopathy or radiculopathy, thoracolumbar region

== ENCOUNTER → 2024-11-21 09:49 | Outpatient (BNVA) | payer OTHER, SELFPAY | PROVIDERS: PCP Internal Medicine; Visit Provider Internal Medicine | DX: I73.00 Raynaud's syndrome without gangrene (principal); R76.8 Other specified abnormal immunological findings in serum; J45.40 Moderate persistent asthma, uncomplicated; J30.9 Allergic rhinitis, unspecified; E55.9 Vitamin D deficiency, unspecified; R51.9 Headache, unspecified; Q77.4 Achondroplasia; M47.815 Spondylosis without myelopathy or radiculopathy, thoracolumbar region; E66.9 Obesity, unspecified; E78.00 Pure hypercholesterolemia, unspecified; Z68.37 Body mass index [BMI] 37.0-37.9, adult | CPT/HCPCS: 96127; 99212 ==

== ENCOUNTER 2024-12-24 11:59 | Outpatient (REF) | payer OTHER, SELFPAY | END 2024-12-24 12:00 | disposition home or self-care (01) | LOC: HO.MAMMO 11:59 | PROVIDERS: PCP Internal Medicine; Visit Provider Advanced Practice Midwife | DX: Z12.31 Encounter for screening mammogram for malignant neoplasm of breast (principal) | CPT/HCPCS: 77063; 77067 ==

== ENCOUNTER → 2024-12-24 12:15 | Outpatient (BNV) | payer OTHER, SELFPAY | PROVIDERS: PCP Internal Medicine; Visit Provider Internal Medicine | DX: Z12.31 Encounter for screening mammogram for malignant neoplasm of breast (principal) | CPT/HCPCS: 77063; 77067 ==

== ENCOUNTER 2025-01-09 16:19 | Outpatient (AMB) | payer OTHER, SELFPAY ==
[2025-01-09 16:25] VITALS: BP 144/90; PULSE 80; TEMP 37.1; O2SAT 98; BMI 39.2
--- NOTE | 2025-01-09 16:25 | MHC.OFFWIV ---
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 - The condition began around Mother's Day with a small crack on the foot, which the patient had experienced before but was able to cure previously. - The current episode has not resolved and is characterized by pain, a sensation of pins and needles, numbness, and cracking. - The patient has been using powder on the affected area, but the condition continues to worsen. - She states that it is uncomfortable to wear shoes. - She denies other rashes or lesions, fever, chills, joint pain. She denies new foods, lotions, soaps, detergents, medications, pets, or travel. Physical Exam General: Cooperative, healthy appearing, comfortable, no acute distress and well developed Orientation: Patient oriented x3 Limitations: No limitations Respiratory: Normal respiratory effort and able to speak in complete sentences. Skin: cracking, dry, flaking white skin noted on the plantar aspect of the right foot at the base of the toes and in between the web spaces Neuro: Sensation is intact Extremities: moving all extremities normally. Ambulates with steady gait. Patient was informed and verbally consented to the use of an ambient scribe for clinic note documentation during this visit [facility] Medical History Raynaud's disease without gangrene Vitamin D deficiency Achondroplasia H/O abnormal cervical Papanicolaou smear Obesity (BMI 30-39.9) Asthma Allergic rhinitis Surgical History History of appendectomy History of section History of tubal ligation Family History Father Diabetes Hypertension Mother Arthritis Social History Housing: House Alcohol intake: current Alcohol intake frequency: holidays/special occasions only Patient Tobacco Use Status: Never used Tobacco e-Cigarette/Vaping Use: Never Used Second Hand Smoke Exposure: No service: No Current occupational status: unemployed Cognitive needs: No Hearing needs: No Vision needs: No Female Reproductive History Menstrual Age of Menarche: 12 Review of Systems Const All systems reviewed & are unremarkable except as noted in HPI and below Physical Exam Vital Signs: Last Vital Signs Temp 98.7 F 01/09/25 16:25 Pulse 80 01/09/25 16:25 BP 144/90 H 01/09/25 16:25 Pulse Ox 98 01/09/25 16:25 Oxygen Delivery Method Room Air 01/09/25 16:25 BMI result Body Mass Index 39.2 Assessment & Plan Assessment & Plan (1) Tinea pedis: Code(s): B35.3 - Tinea pedis Qualifiers: Laterality: right Qualified Code(s): B35.3 - Tinea pedis Plan Most likely tinea vs yeast vs dermatitis Plan 1. Tinea Pedis - Prescribed a topical antifungal cream to be applied for three weeks. - Advised to apply the cream to the entire affected area and surrounding spots. - Recommended follow-up with a supervisor evaporator if no improvement after three weeks. - Prescribed a single oral antifungal pill to prevent yeast infection. Orders: Referrals Podiatry Referral B35.3 - Tinea pedis Medications: New terbinafine HCl 1% 1 appl topical BID 30 grams 0RF 14 days fluconazole may repeat second dose 72 hrs after first dose if symptoms persist 150 mg PO Q3D 2 tabs 0RF Coding Level of Care Code Est Pt Level 3 (20351) Diagnoses Tinea pedis of right foot B35.3 Laterality: right
== END 2025-01-09 16:52 | disposition home or self-care (01) ==
PROVIDERS: PCP Internal Medicine; Visit Provider Physician Assistant Medical
DX: B35.3 Tinea pedis (principal)

== ENCOUNTER → 2025-01-09 16:19 | Outpatient (BNVA) | payer OTHER, SELFPAY | PROVIDERS: PCP Internal Medicine; Visit Provider Physician Assistant Medical | DX: B35.3 Tinea pedis (principal) | CPT/HCPCS: 99212 ==

== ENCOUNTER 2025-01-11 14:44 | Emergency (ER) | payer OTHER, SELFPAY ==
[2025-01-11 15:04] VITALS: BP 196/120; PULSE 84; RESP 16; TEMP 36.4; O2SAT 98; BMI 39.1
--- NOTE | 2025-01-11 15:07 | ED_ITS ---
HPI - General Adult General Chief complaint: Skin/Abscess/Foreign Body Stated complaint: r foot issue Source: patient and RN notes reviewed Mode of arrival: ambulatory Limitations: no limitations History of Present Illness ED Provider: Abigail Horton PA-C HPI narrative: This is a 39-year-old female, with no known medical problems, who presents emergency department with complaints of right foot rash for several months. Patient states that she has noticed blistering, and pain underneath the toes of her right foot. She was seen at an urgent care where she was prescribed oral antifungal medications as well as topical antifungals 2 days ago however states that her symptoms have not improved. She denies any fevers or chills. No history of diabetes. No other complaints or concerns at this time. MD complaint: Foot rash Related Data Home Medications ?Medication ?Instructions ?Recorded ?Confirmed levocetirizine 5 mg tablet (Xyzal) 5 mg PO QPM PRN 11/21/24 Previous Rx's ?Medication ?Instructions ?Recorded albuterol sulfate 90 mcg/actuation 2 puff inhalation Q 6H PRN 07/14/21 aerosol inhaler shortness of breath or wheez ing 30 days #8.5 grams eessndrqvj-miizrpukypgky-cxpmdvuo 1 cap PO TID PRN hea daches 30 days 07/14/21 50 mg-300 mg-40 mg capsule #90 caps (Fioricet) blood pressure monitor #1 ea 06/24/22 cholecalciferol (vitamin D3) 50 50 mcg PO DAILY 90 day s #90 caps 11/19/23 mcg (2,000 unit) capsule montelukast 10 mg tablet 10 mg PO DAILY #90 tabs 02/13 fluticasone 100 mcg-salmeterol 50 1 ea PO BID 30 days #60 ea 11/10/24 mcg/dose blistr powdr for inhalation (Wixela Inhub) fluconazole 150 mg tablet 150 mg PO Q3D #2 tabs terbinafine HCl 1 % topical cream 1 appl topical BID 1 4 days #30 01/09/25 grams diphenhydramine HCl 25 mg capsule 25 - 50 mg (1 - 2 x 25 mg) PO 01/11/25 (Benadryl) BEDTIME PRN itching #20 caps Allergies Allergy/AdvReac Type Severity Reaction Status Date / Time peanut (PEANUT) Allergy Unknown UNKNOWN Verified 01/11/25 15:09 pineapple (PINEAPPLE) Allergy Unknown ITCHING Verified 01/11/25 15:09 shrimp (SHRIMP) Allergy Unknown ITCHING Verified 01/11/25 15:09 tree nut (TREE NUT) Allergy Unknown UNKNOWN Verified 01/11/25 15:09 Review of Systems Review of Systems: Yes all other systems are reviewed and are negative Constitutional: Constitutional: Reports as per [facility] Past Medical History Medical History Raynaud's disease without gangrene Vitamin D deficiency Achondroplasia H/O abnormal cervical Papanicolaou smear Obesity (BMI 30-39.9) Asthma Allergic rhinitis Surgical History History of appendectomy History of section History of tubal ligation Family History Family History Father Diabetes Hypertension Mother Arthritis Social History Social History Housing: House Alcohol intake: current Alcohol intake frequency: holidays/special occasions only Patient Tobacco Use Status: Never used Tobacco e-Cigarette/Vaping Use: Never Used Second Hand Smoke Exposure: No Advance Directives: No Advance Directives Information Provided: No Do you have a plan to hurt others: No Plan service: No Current occupational status: unemployed Cognitive needs: No Hearing needs: No Vision needs: No Physical Exam ED Vital Signs: Vital Signs - 24 hr 01/11/25 15:04 Temperature 97.6 F Pulse Rate 84 Respiratory Rate 16 Blood Pressure 196/120 H Pulse Oximetry 98 Oxygen Delivery Method Room Air BMI result Body Mass Index 39.1 Const Other: General: Awake, alert, and oriented X3. No acute distress. HEENT: Normal inspection CVS: Normal heart rate and rhythm. Pulses normal. Respiratory: No respiratory distress Skin: Right foot, plantar aspect, there is a cracking, dry, flaking white skin noted, no erythema, drainage, or warmth. Mildly tender to palpation Extremities: See above Neuro: Oriented X 3. No motor deficit. No sensory deficit. Medical Decision Making Medical Decision Making MDM Narrative: This is a 39-year-old female who presents emergency department with complaints of rash on foot. This has been ongoing for several weeks, was seen at urgent care 2 days ago where she was prescribed fluconazole, and terbinafine which she has been using however states that symptoms have not been improving. On arrival, patient is hypertensive at 196/120. She has no chest pain or shortness for breath. Patient states that she gets profoundly hypertensive whenever she is at a medical facility. I stressed the importance of getting a blood pressure cuff at home so she can monitor this. She has no chest pain, shortness for breath, dizziness or lightheadedness. No changes in vision. Discussed with patient that she was prescribed these medications 2 days ago and advised that she will likely not see any improvement for several weeks. I had given her a podiatry referral. She has no evidence of infection, given strict return precautions. Patient stable for discharge Differential Diagnosis Differential Diagnoses: The differential diagnosis associated with the presentation includes Cellulitis, tinea pedis, laceration Discharge Plan Discharge Clinical Impression: Tinea pedis Patient Disposition: Home, Self-Care Instructions: Skin Yeast Infection (ED) Additional Instructions: You were seen in the ER due to foot rash. Continue using the prescribed medication you were prescribed. Keep area clean and dry. Please follow up with a applied psychology teacher. If any new or worsening symptoms occur, including increased redness, swelling, please return for re-evaluation. You may take benadryl at home at bedtime for itching. Prescriptions: New diphenhydramine HCl [Benadryl] 25 mg capsule 25 - 50 mg PO BEDTIME PRN (Reason: itching) Qty: 20 0RF No Action cholecalciferol (vitamin D3) 50 mcg (2,000 unit) capsule 50 mcg PO DAILY 90 Days Qty: 90 3RF montelukast 10 mg tablet 10 mg PO DAILY Qty: 90 3RF fluticasone propion-salmeterol [Wixela Inhub] 100-50 mcg/dose blister with device 1 ea PO BID 30 Days Qty: 60 5RF albuterol sulfate 90 mcg/actuation HFA aerosol inhaler 2 puff inhalation Q6H PRN (Reason: shortness of breath or wheezing) 30 Days Qty: 8.5 5RF oowmvqfrgt-hjjwudbeymqfh-aumv [Fioricet] 50-300-40 mg capsule 1 cap PO TID PRN (Reason: headaches) 30 Days Qty: 90 3RF (DME) blood pressure monitor Kit See Rx Instructions .Route Qty: 1 0RF Rx Instructions: As directed levocetirizine [Xyzal] 5 mg tablet 5 mg PO QPM PRN terbinafine HCl 1 % cream 1 appl topical BID 14 Days Qty: 30 0RF fluconazole 150 mg tablet 150 mg PO Q3D Qty: 2 0RF Rx Instructions: may repeat second dose 72 hrs after first dose if symptoms persist Referrals: Felipe Abad DPM [Physician, Podiatry] Clinical Impression: Tinea pedis Aysha Vines DPM [Physician, Podiatry] Clinical Impression: Tinea pedis Arnold Mancuso DPM [Physician, Podiatry] Clinical Impression: Tinea pedis Discharge Date/Time: 01/11/25 15:37 Print Language: Ghanaian
== END 2025-01-11 15:37 | disposition home or self-care (01) ==
LOC: HO.ED 15:36
PROVIDERS: Emergency Provider Emergency Medicine; PCP Internal Medicine
DX: B35.3 Tinea pedis (principal)
CPT/HCPCS: 99281; 99283

== ENCOUNTER 2025-05-19 08:49 | Outpatient (REF) | payer OTHER, SELFPAY ==
[2025-05-19 09:01] LABS: MANUAL DIFF FLAG NO
[2025-05-19 09:26] LABS: Hematocrit 47.7 % (37.0-47.0); Hemoglobin 15.6 g/dl (12.0-16.0); Imm Gran Abs Auto 0.01 X10*3/uL (0.00-0.03); Imm Gran Pct Auto 0.2 % (0.0-0.4); Lymphocytes Absolute Auto 1.4 X10*3/uL (1.2-4.9); Mean Corpuscular HGB Conc 32.7 g/dl (31.0-35.0); Mean Corpuscular Hemoglobin 29.9 pg (27.0-33.0); Mean Corpuscular Volume 91.4 fL (80.0-98.0); NRBC Abs Auto 0.000 X10*3/uL (0.0-0.012); NRBC Pct Auto 0.0 /100WBC (0.0-0.2); Platelet Count 237 X10*3/uL (160-400); Red Blood Count 5.22 X10*6/uL (4.20-5.50); White Blood Count 4.1 X10*3/uL (4.8-10.8)
--- OUTSIDE RECORDS SUMMARY | 2025-05-19 09:26 | XMS_ITS | Patient Health Record ---
Author Organization [facility] Address [address] [place] [address] Care Team Providers Care Fish Checker Name Role Phone Thony Newton MDh Primary Care Provider Unava ilable Coty Borges Unavailable [phone] Reason For Referral No Information Encounters Encounter Location Date Provider Diagnosis [facility] [address] [place] [address] 01/14/2025 Coty Borges [facility] [address] [place] [address] 04/07/2025 Coty Borges Plan Of Treatment No Information Insurance Providers Payer Name Payer Address Payer Phone Subscriber Number Group Number Insured Name Patient Relationship to Insured Coverage Start Date Coverage End Date [facility] [place] [employer] [address] [place] [id number] Dotty Quintanilla Self - patient is the insured
[2025-05-19 10:06] LABS: Appearance Urine Clear; Glucose Urine UA Negative (Negative); PH 5.5 (5.0-9.0); Specific Gravity - Urine >= 1.030 (1.005-1.025)
[2025-05-19 10:08] LABS: Alanine Aminotransferase 14 U/L (0-31); Albumin Level 4.4 g/dL (3.5-5.0); Alkaline Phosphatase 53 U/L (39-117); Anion Gap 10 (12-20); Aspartate Amino Transferase 19 U/L (5-31); Blood Urea Nitrogen 14 mg/dL (9-16); Calcium 9.2 mg/dL (8.4-10.2); Carbon Dioxide 27 mmol/L (22-29); Chloride 109 mmol/L (96-108); Cholesterol 163 mg/dL (<200); Estimated Glomerular Filt Rate > 60; HDL Cholesterol 45 mg/dL (>40); Potassium 4.0 mmol/L (3.3-5.1); Sodium 142 mmol/L (135-145); Total Protein 7.3 g/dL (6.5-8.0); Triglycerides 80 mg/dL (<150)
== END 2025-05-19 08:50 | disposition home or self-care (01) ==
LOC: HO.LAB 08:49
PROVIDERS: PCP Internal Medicine; Visit Provider Internal Medicine
DX: Z00.00 Encounter for general adult medical examination without abnormal findings (principal); E78.00 Pure hypercholesterolemia, unspecified; E55.9 Vitamin D deficiency, unspecified; D64.9 Anemia, unspecified; R30.0 Dysuria
CPT/HCPCS: 36415; 80053; 80061; 81003; 82306; 84443; 85025

== ENCOUNTER 2025-05-28 10:13 | Outpatient (AMB) | payer OTHER, SELFPAY ==
--- OUTSIDE RECORDS SUMMARY | 2025-04-09 04:30 | XMS_ITS ---
Author Organization [facility] Address [address] [place] [address] Care Team Providers Care Seo Manager Name Role Phone Aman BRITTON, Kareem Primary Care Provider Unava ilCoty Bernabe Unavailable [phone] REASON FOR VISIT no ppwrk Encounters Encounter Location Date Provider Diagnosis [facility] [address] [place] [address] 04/09/2025 Coty Borges Plan Of Treatment No Information Progress Notes * Dotty ANDRESDOB:[birth year] (39 yo F)Acc No.[id number]:04/09/2025 Progress Notes Patient: Dotty BARRETO Provider: Ashok Borges DPM :1985 A ge:39 Y S ex:Female Date:04/09/2025 Address:[address] [place], [place] [id number] Pcp:Kareem Newton MD Subjective: * Chief Complaints: * 1 . No ppwrk. * Medical History: Objective: * Vitals: Assessment: Plan: * Treatment: * Images: * The named appointment provid er may or may not be the originator of this progress note, and it is not deemed complete until electronically signed by the appointment provider. Sign off status: Pending * Provider: Ashok Borges DPM Date: 0 04/09/2025 Generated for Lylei teto/Diana/eTransmitting on: 1 07/28/2024 11:48 AM EST
[2025-05-28 10:15] VITALS: BP 116/80; PULSE 76; O2SAT 98; BMI 40.0
--- NOTE | 2025-05-28 10:15 | A.OFFPC_ITS ---
Vital Signs 05/28/25 10:15 Height 4 ft Weight 131 lb BMI 40.0 BP 116/80 Blood Pressure Location Lt brachial Position Sitting Pulse 76 Pulse Source Pulse Oximeter Pulse Oximetry (%) 98 Oxygen Delivery Method Room Air Intake Visit Reasons: annual PE Production Metal Sprayer Required: No Accompanied by: Self / Same As Patient Allergies peanut (PEANUT) Allergy (Unknown, Verified 05/28/25 10:52) UNKNOWN pineapple (PINEAPPLE) Allergy (Unknown, Verified 05/28/25 10:52) ITCHING shrimp (SHRIMP) Allergy (Unknown, Verified 05/28/25 10:52) ITCHING tree nut (TREE NUT) Allergy (Unknown, Verified 05/28/25 10:52) UNKNOWN Medication List - Last Reconciled 05/28/25 by Kareem Newton MD albuterol sulfate 90 mcg/actuation 2 puffs inhalation Q6H PRN 30 days blood pressure monitor As directed [id number]-[id number] 50-300-40 mg (Fioricet) 1 cap PO TID PRN 30 days cholecalciferol (vitamin D3) 50 mcg PO DAILY 90 days diphenhydramine HCl (Benadryl) 25 - 50 mg (1 - 2 x 25 mg) PO BEDTIME PRN fluticasone propion-salmeterol 100-50 mcg/dose (Wixela Inhub) 1 ea PO BID 30 days levocetirizine (Xyzal) 5 mg PO QPM PRN montelukast 10 mg PO DAILY Tobacco use date assessed: 05/28/25 Dental Screening Dental Screen Date: 05/28/25 Did you have a dental visit in the last 12 months?: Yes Did you have a dental problem in the last 6 months where you did not have access to dental care?: No Was dental information given to patient?: Patient has dentist HPI annual PE HPI Details Patient comes in today for her annual physical examination States that she feels okay She denies any dizziness but reports (+) recurrent headaches for the past couple of weeks - describes these as sharp pains over her entire forehead (similar to how a brain freeze feels like) that would then radiate back to eventually involve the back of her head and neck areas States that these tend to last for a whole day and has been occurring more often lately (everyday now) and she would end up taking some Tylenol or Ibuprofen at night just to allow her to be able to get some sleep She denies any associated photophobia or nausea/vomiting associated with these headaches and states that they feel completely diffferent to how her migraine headaches were in the past She denies any chest pains; states that she has also been experiencing some flare up of her asthma lately - thinks that these started during the change in season last month and she is thinking that allergies are the main reason for her recent symptoms No nausea/vomiting, no abdominal pain No change in bowel habits noted She denies any acute urinary symptoms She had her follow up labs done about a week ago - to discuss her results Her annual mammogram was last done in December 2024 She had her last pap smear done back in 2020; recalls that during her last gynecology exam in September 2024, she was advised that she does not yet need a repeat pap and this will be done at her next gynecology appointment in September 2025 [facility] Medical History Raynaud's disease without gangrene Vitamin D deficiency Achondroplasia H/O abnormal cervical Papanicolaou smear Obesity (BMI 30-39.9) Asthma Allergic rhinitis Surgical History History of appendectomy History of section History of tubal ligation Family History Father Diabetes Hypertension Mother Arthritis Social History Housing: House Alcohol intake: current Alcohol intake frequency: holidays/special occasions only Patient Tobacco Use Status: Never used Tobacco e-Cigarette/Vaping Use: Never Used Second Hand Smoke Exposure: No service: No Current occupational status: unemployed Cognitive needs: No Hearing needs: No Vision needs: No Female Reproductive History Menstrual Age of Menarche: 12 Questionnaire PHQ-9 Over the last 2 weeks, how often have you been bothered by any of the following problems? 1. Little interest or pleasure in doing things: not at all 2. Feeling down, depressed, or hopeless: not at all 3. Trouble falling or staying asleep, or sleeping too much: not at all 4. Feeling tired or having little energy: not at all 5. Poor appetite or overeating: not at all 6. Feeling bad about yourself - or that you are a failure or have let yourself or your family down: not at all 7. Trouble concentrating on things, such as reading the newspaper or watching television: not at all 8. Moving or speaking so slowly that other people could have noticed. Or the opposite - being so fidgety or restless that you have been moving around a lot more than usual: not at all 9. Thoughts that you would be better off or of hurting yourself in some way: not at all Total score: 0 Depression Screening Interpretation: Negative Depression Screening Done: Yes 60532 - PHQ-9 Billing: Yes Source: Developed by Drs. Luis Miguel Santana, Edda Maurer, Tor Tan and colleagues, with an educational kelsey from [employer]. Thrive Questionnaire Date Thrive assessed: 05/28/25 I am a: Patient What is your living situation today?: I have a steady place to live Within the past 12 months, did the food you bought not last and you didn't have the money to get more?: Never true Within the past 12 months, did you worry whether your food would run out before you got money to buy more?: Never true Do you have trouble paying for medicines?: No Do you have trouble getting transportation to medical appointments?: No Do you have trouble paying your heating and electricity bill?: No Do you have trouble taking care of your child, family member or friend?: No Do you have trouble with day-to-day activities such as bathing, preparing meals, shopping, managing finances, etc.?: No Are you currently unemployed and looking for a job?: No Are you interested in more education?: No Please select the resources that you would like help with: None Currently or been in a relationship where the following occur: No concerns reported THRIVE Score: 0 AUDIT C Alcohol Use Questionnaire (AUDIT-C) 1. How often do you have a drink containing alcohol?: Never 3. How often do you have six or more drinks on one occasion?: Never Total Score: 0 Score Reviewed/Action Taken: Yes GROVER-7 AMB Questionnaire GROVER-7 Date GROVER - 7 assessed: 05/28/25 Feeling nervous, anxious, or on edge: 0 = Not at all Not being able to stop or control worryin = Not at all Worrying too much about different things: 0 = Not at all Trouble relaxin = Not at all Being so restless that it is hard to sit still: 0 = Not at all Becoming easily annoyed or irritable: 0 = Not at all Feeling afraid as if something awful might happen: 0 = Not at all Total GROVER-7 score (0-4 normal; 5-9 mild; 10-14 moderate; 15-21 severe): 0 Source: Developed by Drs. Luis Miguel Santana, Edda Maurer, Tor Tan and colleagues, with an educational kelsey from [employer]. Review of Systems Const Denies chills, Denies fatigue, Denies fever(s) and Reports headache(s) (on and off lately - see HPI) ENT Denies dysphagia, Denies dizziness, Denies otalgia, Reports headache(s) (on and off lately - see HPI), Denies neck pain, Denies odynophagia and Denies sore throat Card Denies chest pain, Denies irregular heart rhythm, Denies palpitations and Denies dyspnea Resp Reports chest congestion (at times, especially at night, since her asthma started flaring up), Reports cough (ccasional), Denies dyspnea and Reports wheezing (occasionally lately - see HPI) GI Denies abdominal pain, Denies constipation, Denies dysphagia, Denies heartburn, Denies diarrhea, Denies nausea, Denies odynophagia and Denies vomiting Denies difficulty voiding, Denies nocturia, Denies dysuria and Denies urinary urgency Musc Reports back pain (over the lower back - on and off), Denies arthralgias and Denies neck pain Skin/Breast Denies rash Neuro Denies dizziness, Reports headache(s) (on and off lately - see HPI) and Denies paresthesias Psych Denies anxiety and Denies depression Endo Details: hands/fingers and feet/toes feel cold and freezing often, and sometimes painful, irregardless of the prevailing weather conditions Denies fatigue and Denies palpitations Ned/Lymph Denies easy bruising Aller/Immun Reports wheezing (occasionally lately - see HPI) Physical exam (Primary Care) Vital Signs: Last Vital Signs Pulse 76 05/28/25 10:15 BP 116/80 05/28/25 10:15 Pulse Ox 98 05/28/25 10:15 Oxygen Delivery Method Room Air 05/28/25 10:15 BMI result Body Mass Index 40.0 Tobacco/Smoking Status: Tobacco use Status Tobacco use date assessed 05/28/25 05/28/25 10:20 Patient Tobacco Use Status Never used Tobacco 05/28/25 10:20 e-Cigarette/Vaping Use Never Used 05/28/25 10:20 PHQ-9: PHQ-9 Score PHQ-9: Total score 0 05/28/25 10:20 Depression Screening Interpretation: Negative Thrive Assessment: Date of Thrive Assessment Date Thrive assessed 05/28/25 05/28/25 10:20 Currently or been in a relationship where the following occur: No concerns reported Const Other: short stature General: no acute distress and alert HENMT Ears: TM's normal bilaterally and EAC's normal Throat: Yes posterior oropharynx normal and Yes tonsils normal (no TP congestion) Neck Neck: Yes supple and No lymphadenopathy Thyroid: Thyroid normal Resp Auscultation: no crackles, no rales and wheezes (occasional) expiratory wheezes Cardio Rate: regular rate Rhythm: regular rhythm Heart sounds: no murmurs GI Palpation (GI): Soft to palpation and nontender Auscultation: normal bowel sounds General: Yes no CVA tenderness Back/Spine/Pelvis Back: no CVA tenderness Thoracic/Lumbar Spine: lumbar spinal tenderness Skin Rashes: no rashes Extrem General: Yes no clubbing, cyanosis or edema Results Reviewed Results Reviewed: Laboratory Tests 05/19/25 05/19/25 08:51 08:53 WBC 4.1 L Hgb 15.6 Hct 47.7 H Plt Count 237 Sodium 142 Potassium 4.0 Creatinine 0.79 Estimated GFR > 60 Fasting Glucose 87 Calcium 9.2 AST 19 ALT 14 Triglycerides 80 Cholesterol 163 LDL Cholesterol, Calc 102 H HDL Cholesterol 45 25-OH Vitamin D Total 20.1 L TSH 1.03 Ur Specific [place] >= 1.030 H Urine Protein Negative Urine Glucose (UA) Negative Urine Blood Negative Urine Nitrite Negative Ur Leukocyte Esterase Negative Coding Level of Care Code Est Pt Prev Care 40-64y(88194) Diagnoses Annual physical exam Z00.00 Raynaud's disease without gangrene I73.00 Raynaud?s-associated gangrene presence: without gangrene Positive TAYE (antinuclear antibody) R76.8 Moderate persistent asthma without complication J45.40 Asthma severity: moderate Asthma persistence: persistent Asthma complication type: uncomplicated Allergic rhinitis, unspecified seasonality, unspecified trigger J30.9 Allergic rhinitis trigger: unspecified Allergic rhinitis seasonality: unspecified Vitamin D deficiency E55.9 Recurrent headache R51.9 Achondroplasia Q77.4 Spondylosis of thoracolumbar spine M47.815 Obesity (BMI 30-39.9) E66.9 Additional Codes PHQ-9 - 56584 - PHQ-9 Billing: Yes ([id number]) Assessment & Plan Assessment & Plan (1) Annual physical exam: Code(s): Z00.00 - Encounter for general adult medical examination without abnormal findings Category: Medical Plan: Results of her labs done last week reviewed and discussed with patient She is currently up-to-date with all of her cancer screenings - her annual mammogram was last done in December 2024 Her last pap smear was done in 2020 and her last gynecology exam was in September 2024. with her next year's gynecology appointment and repeat pap smear scheduled in September 2025 (2) Raynaud's syndrome: Code(s): I73.00 - Raynaud's syndrome without gangrene Category: Medical Qualifiers: Raynaud?s-associated gangrene presence: without gangrene Qualified Code(s): I73.00 - Raynaud's syndrome without gangrene Plan: Patient had arterial duplex done back in November 2023 that came back negative She was referred to and seen by rheumatology earlier this year and was reportedly advised that she does not have any evidence of inflammatory joint d isease or lupus and can just follow up with rheumatology on an as-needed basis (3) Positive TAYE (antinuclear antibody): Code(s): R76.8 - Other specified abnormal immunological findings in serum Category: Medical Plan: Patient tested mildly positive for TAYE earlier this year; ESR and rheumatoid factor were negative Her ds-DNA antibody test also came back negative She has been advised by rheumatology that she does not have any evidence of inflammatory joint disease or lupus (4) Asthma: Code(s): J45.909 - Unspecified asthma, uncomplicated Category: Medical Qualifiers: Asthma severity: moderate Asthma persistence: persistent Asthma complication type: uncomplicated Qualified Code(s): J45.40 - Moderate persistent asthma, uncomplicated Plan: Patient seems to be experiencing some recurrent flare ups of her asthma recently despite her current Rx Will try increasing her Wixela Inhub from 100-50 mcg to 250-50 mcg 1 inhalation BID Continue Montelukast 10 mg QD and Albuterol HFA 1 to 2 inhalations Q 6 hours as needed (5) Allergic rhinitis: Code(s): J30.9 - Allergic rhinitis, unspecified Category: Medical Qualifiers: Allergic rhinitis trigger: unspecified Allergic rhinitis seasonality: unspecified Qualified Code(s): J30.9 - Allergic rhinitis, unspecified Plan: Continue Loratadine 10 mg QD PRN and Montelukast 10 mg QD (6) Vitamin D deficiency: Code(s): E55.9 - Vitamin D deficiency, unspecified Category: Medical Plan: Continue Vitamin D3 2000 units QD She is advised that her Vitamin D level is again low on her recent labs Patient admits to forgetting to take her Vitamin D supplements at times and will try to do better with this (7) Recurrent headache: Code(s): R51.9 - Headache, unspecified Category: Medical Plan: Her headaches have been well-controlled until the past couple of weeks, when patient started experiencing her recent headaches (see HPI for details) Will refer her now to neurology for further evaluation and management of her recent increasing headaches Reinforced avoidance of migraine triggers Continue Fioricet 1 tablet 3 to 4 times a day as needed for now (8) Achondroplasia: Code(s): Q77.4 - Achondroplasia Category: Medical Plan: She has no associated neurologic symptoms and no further interventions are indicated (9) Spondylosis of thoracolumbar spine: Code(s): M47.815 - Spondylosis without myelopathy or radiculopathy, thoracolumbar region Category: Medical Plan: X-rays done back in 2014 revealed only (+) mild scoliosis with no acute abnormality Repeat x-rays done in May 2023 revealed mild degenerative disc disease at L5-S1, multi-level mild thoracolumbar spondylosis and mild to moderate lumbar dextroscoliosis; her hip x-rays came back normal She was previously referred to physical therapy and states that her low back pains have improved with PT and have not been bothering her too much since (10) Obesity (BMI 30-39.9): Code(s): E66.9 - Obesity, unspecified Category: Medical Plan: Reinforced diet/exercise as tolerated/lose weight Plan Follow up in 6 months Orders: Referrals Neurology Referral R51.9 - Headache, unspecified Medications: New fluticasone propion-salmeterol 250-50 mcg/dose (Wixela Inhub) 1 inh inhalation BID 60 ea 5RF 30 days Discontinued fluticasone propion-salmeterol 100-50 mcg/dose (Wixela Inhub) Discontinued Reason: Doctor's Order 1 ea PO BID 30 days 60 ea 5RF
--- OUTSIDE RECORDS SUMMARY | 2025-05-28 11:48 | XMS_ITS | Patient Health Record ---
Author Organization [facility] Address [address] [place] [address] Care Team Providers Care Welt Drawer Name Role Phone Thony Newton MDh Primary Care Provider Unava ilable Coty Borges Unavailable [phone] Reason For Referral No Information Encounters Encounter Location Date Provider Diagnosis [facility] [address] [place] [address] 01/14/2025 Coty Borges [facility] [address] [place] [address] 04/07/2025 Coty Borges Plan Of Treatment No Information Insurance Providers Payer Name Payer Address Payer Phone Subscriber Number Group Number Insured Name Patient Relationship to Insured Coverage Start Date Coverage End Date [facility] [place] [employer] [facility] [address] [place] [id number] Dotty Quintanilla Self - patient is the insured
== END 2025-05-28 11:10 | disposition home or self-care (01) ==
LOC: HO.HMCH 10:14
PROVIDERS: PCP Internal Medicine; Visit Provider Internal Medicine
DX: Z00.00 Encounter for general adult medical examination without abnormal findings (principal); I73.00 Raynaud's syndrome without gangrene; E66.9 Obesity, unspecified; Z68.41 Body mass index [BMI] 40.0-44.9, adult; R76.89 Other specified abnormal immunological findings in serum; J45.40 Moderate persistent asthma, uncomplicated; J30.9 Allergic rhinitis, unspecified; E55.9 Vitamin D deficiency, unspecified; R51.9 Headache, unspecified; Q77.4 Achondroplasia; M47.815 Spondylosis without myelopathy or radiculopathy, thoracolumbar region

== ENCOUNTER → 2025-05-28 10:13 | Outpatient (BNVA) | payer OTHER, SELFPAY | PROVIDERS: PCP Internal Medicine; Visit Provider Internal Medicine | DX: Z00.00 Encounter for general adult medical examination without abnormal findings (principal); I73.00 Raynaud's syndrome without gangrene; R76.89 Other specified abnormal immunological findings in serum; J45.40 Moderate persistent asthma, uncomplicated; J30.9 Allergic rhinitis, unspecified; E55.9 Vitamin D deficiency, unspecified; R51.9 Headache, unspecified; Q77.4 Achondroplasia; M47.815 Spondylosis without myelopathy or radiculopathy, thoracolumbar region; E66.9 Obesity, unspecified; Z68.41 Body mass index [BMI] 40.0-44.9, adult | CPT/HCPCS: 96127; 99396 ==